=== PATIENT | female | born 1940 | race African-American/Black ===

== ENCOUNTER 2018-03-18 17:00 | Inpatient (IN) | payer MEDICARE, BC ==
[~2018-03-18] VITALS: Ht 167.6 cm; Wt 88.5 kg
[~2018-03-18 17:00] MED LIST: AMOX1TAB16 PO; LEVO88TA7 PO; POLY17PO3 PO; SENN-3 PO
[2018-03-18 17:30] VITALS: BP 137/62
[2018-03-18] MEDS ORDERED: SENNOSIDES/DOCUSATE SOD 8.6/50MG TABLET PO PRN (17:45)
[2018-03-18] MEDS ORDERED: MAGNESIUM/ALUMINUM HYDROXIDE/SIMETHICONE 30ML UDC PO PRN (17:45)
[2018-03-18] MEDS ORDERED: GUAIFENESIN 200MG/10ML SUGAR FREE UDC PO PRN (17:45)
[2018-03-18] MEDS ORDERED: ACETAMINOPHEN 650MG SUPP PR PRN (17:45)
[2018-03-18] MEDS ORDERED: ONDANSETRON 4MG ODT PO PRN (18:00)
[2018-03-18 20:00] VITALS: BP 100/64
[2018-03-18] MEDS: IPRATROPIUM/ALBUTEROL 0.5-3(2.5)MG/3ML NEB HHN SCH (21:09)
[2018-03-18] MEDS: MAGNESIUM CHLORIDE 64MG TABLET SR PO SCH (22:15)
[2018-03-19] MEDS: IPRATROPIUM/ALBUTEROL 0.5-3(2.5)MG/3ML NEB HHN SCH ×4 (01:26→20:24)
[2018-03-19] MEDS: LEVOTHYROXINE SODIUM 88MCG TABLET PO SCH (06:19)
[2018-03-19 08:00] VITALS: BP 155/80
[2018-03-19 08:33] LABS: HEMATOCRIT 34.8 % (36.0-48.0); HEMOGLOBIN 11.1 g/dL (12.0-16.0); MEAN CORPUSCULAR VOLUME 90.5 fL (81.0-99.0); PLATELET 228 x1000/uL (130-400); RED BLOOD CELL COUNT 3.84 mill/uL (4.2-5.4); RED CELL DISTRIBUTION WIDTH 15.3 % (11.6-14.6)
[2018-03-19 08:44] LABS: CHLORIDE 105 mEq/L (98-107)
[2018-03-19] MEDS: DOCUSATE SODIUM 250MG CAPSULE PO SCH ×2 (09:20→18:06)
[2018-03-19] MEDS: POLYETHYLENE GLYCOL 3350 (17GM) 1 DOSE PACK PO SCH (09:21)
[2018-03-19] MEDS: MAGNESIUM CHLORIDE 64MG TABLET SR PO SCH ×2 (09:24→18:06)
[2018-03-19 17:00] VITALS: BP_SYST 138; BP_SYST 139; BP_DIAS 50; BP_DIAS 62
[2018-03-19] MEDS: SODIUM CHLORIDE 0.9% 1,000 ML IV SCH (18:07)
[2018-03-19 18:53] LABS: CLARITY URINE CLEAR (CLEAR); COLOR URINE YELLOW (YELLOW); KETONES URINE NEGATIVE (NEGATIVE); LEUKOCYTE ESTERASE URINE TRACE (NEGATIVE); NITRITE URINE NEGATIVE (NEGATIVE); OCCULT BLOOD URINE NEGATIVE (NEGATIVE); PROTEIN URINE NEGATIVE (NEGATIVE); SPECIFIC GRAVITY URINE 1.018 (1.005-1.030); UROBILINOGEN URINE 0.2 E.U./dL (0.2-1.0)
[2018-03-19 20:00] VITALS: BP 100/52
[2018-03-19] MEDS: ENOXAPARIN 30MG/0.3ML SYR SUBCUT SCH (21:35)
[2018-03-20] MEDS: IPRATROPIUM/ALBUTEROL 0.5-3(2.5)MG/3ML NEB HHN SCH ×4 (02:26→21:32)
[2018-03-20] MEDS: LEVOTHYROXINE SODIUM 88MCG TABLET PO SCH (06:22)
[2018-03-20] MEDS: PANTOPRAZOLE 40MG DR TABLET PO SCH (06:22)
[2018-03-20] MEDS: SODIUM CHLORIDE 0.9% 1,000 ML IV SCH ×2 (06:24→18:42)
[2018-03-20 07:15] LABS: BASOPHILS % 1.1 % (0.0-2.0); EOSINOPHILS % 2.2 % (0.0-5.0); HEMATOCRIT. 32.3 % (36.0-48.0); HEMOGLOBIN. 10.4 g/dL (12.0-16.0); LYMPHOCYTES % 21.8 % (20.0-50.0); MEAN CORPUSCULAR HEMOGLOBIN 29.1 pg (28.0-32.0); MEAN CORPUSCULAR VOLUME 90.3 fL (81.0-99.0); MEAN PLATELET VOLUME 8.6 fl (7.4-10.4); MONOCYTES % 6.7 % (2.0-8.0); NEUTROPHILS % 68.2 % (40.0-76.0); PLATELET 186 x1000/uL (130-400); RED BLOOD CELL COUNT 3.58 mill/uL (4.2-5.4); RED CELL DISTRIBUTION WIDTH 15.3 % (11.6-14.6)
[2018-03-20 07:21] LABS: AMMONIA 27 uMol/L (<32)
[2018-03-20 07:30] LABS: CHLORIDE 107 mEq/L (98-107)
[2018-03-20 08:00] VITALS: BP 164/80
[2018-03-20] MEDS ORDERED: ENOXAPARIN 40MG/0.4ML SYR SUBCUT SCH (09:00)
[2018-03-20] MEDS: POLYETHYLENE GLYCOL 3350 (17GM) 1 DOSE PACK PO SCH (10:13)
[2018-03-20] MEDS: MAGNESIUM CHLORIDE 64MG TABLET SR PO SCH ×2 (10:13→17:24)
[2018-03-20] MEDS: DOCUSATE SODIUM 250MG CAPSULE PO SCH ×2 (10:13→17:24)
[2018-03-20] MEDS: ENOXAPARIN 30MG/0.3ML SYR SUBCUT SCH ×2 (10:13→21:54)
[2018-03-20] MEDS: NYSTATIN POWDER 15GM TOP SCH ×2 (15:04→21:55)
[2018-03-20] MEDS: LACTULOSE 20G/30ML UDC PO SCH ×3 (15:04→22:00)
[2018-03-20] MEDS ORDERED: BISACODYL 10MG SUPP PR PRN (18:30)
[2018-03-20 20:00] VITALS: BP 152/98
[2018-03-21] MEDS: IPRATROPIUM/ALBUTEROL 0.5-3(2.5)MG/3ML NEB HHN SCH ×4 (01:36→19:54)
[2018-03-21] MEDS: LEVOTHYROXINE SODIUM 88MCG TABLET PO SCH (06:26)
[2018-03-21] MEDS: PANTOPRAZOLE 40MG DR TABLET PO SCH (06:26)
[2018-03-21] MEDS: NYSTATIN POWDER 15GM TOP SCH ×3 (06:28→21:08)
[2018-03-21 07:23] LABS: BASOPHILS % 1.1 % (0.0-2.0); EOSINOPHILS % 2.3 % (0.0-5.0); HEMATOCRIT. 29.2 % (36.0-48.0); HEMOGLOBIN. 9.5 g/dL (12.0-16.0); LYMPHOCYTES % 18.8 % (20.0-50.0); MEAN CORPUSCULAR HEMOGLOBIN 29.2 pg (28.0-32.0); MEAN CORPUSCULAR VOLUME 89.8 fL (81.0-99.0); MEAN PLATELET VOLUME 8.4 fl (7.4-10.4); MONOCYTES % 7.6 % (2.0-8.0); NEUTROPHILS % 70.2 % (40.0-76.0); PLATELET 191 x1000/uL (130-400); RED BLOOD CELL COUNT 3.25 mill/uL (4.2-5.4)
[2018-03-21 07:37] LABS: PHOSPHORUS 2.3 mg/dL (2.5-4.9)
[2018-03-21 07:56] VITALS: BP 147/78
[2018-03-21 08:23] LABS: FOLIC ACID (FOLATE) SERUM 8.8 ng/mL (>5.38)
[2018-03-21] MEDS: SODIUM CHLORIDE 0.9% 1,000 ML IV SCH ×2 (10:26→22:05)
[2018-03-21] MEDS: DOCUSATE SODIUM 250MG CAPSULE PO SCH ×2 (10:27→16:44)
[2018-03-21] MEDS: ENOXAPARIN 30MG/0.3ML SYR SUBCUT SCH (10:27)
[2018-03-21] MEDS: POLYETHYLENE GLYCOL 3350 (17GM) 1 DOSE PACK PO SCH (10:27)
[2018-03-21] MEDS: MAGNESIUM CHLORIDE 64MG TABLET SR PO SCH ×2 (10:27→16:44)
[2018-03-21] MEDS: ACETAMINOPHEN 650MG/20.3ML UDC PO PRN (12:40)
[2018-03-21 19:57] LABS: AMMONIA 16 uMol/L (<32)
[2018-03-21 20:00] VITALS: BP 138/65
[2018-03-22] MEDS: IPRATROPIUM/ALBUTEROL 0.5-3(2.5)MG/3ML NEB HHN SCH ×4 (01:36→21:18)
[2018-03-22] MEDS: NYSTATIN POWDER 15GM TOP SCH ×3 (06:18→21:12)
[2018-03-22] MEDS: LEVOTHYROXINE SODIUM 88MCG TABLET PO SCH (06:18)
[2018-03-22] MEDS: PANTOPRAZOLE 40MG DR TABLET PO SCH (06:18)
[2018-03-22 07:30] LABS: BASOPHILS % 0.9 % (0.0-2.0); EOSINOPHILS % 3.7 % (0.0-5.0); HEMATOCRIT. 27.5 % (36.0-48.0); HEMOGLOBIN. 9.2 g/dL (12.0-16.0); LYMPHOCYTES % 24.8 % (20.0-50.0); MEAN CORPUSCULAR HEMOGLOBIN 29.8 pg (28.0-32.0); MEAN CORPUSCULAR VOLUME 89.2 fL (81.0-99.0); MEAN PLATELET VOLUME 8.4 fl (7.4-10.4); MONOCYTES % 8.2 % (2.0-8.0); NEUTROPHILS % 62.4 % (40.0-76.0); PLATELET 181 x1000/uL (130-400); RED BLOOD CELL COUNT 3.08 mill/uL (4.2-5.4); RED CELL DISTRIBUTION WIDTH 15.6 % (11.6-14.6)
[2018-03-22 07:47] LABS: CHLORIDE 110 mEq/L (98-107)
[2018-03-22 08:00] VITALS: BP 131/62
[2018-03-22 08:05] LABS: PHOSPHORUS 2.5 mg/dL (2.5-4.9)
[2018-03-22 08:07] LABS: T4 FREE 0.96 ng/dL (0.76-1.46)
[2018-03-22] MEDS ORDERED: MAGNESIUM 2 G PREMIX 50 ML IV SCH (09:30)
[2018-03-22] MEDS: DOCUSATE SODIUM 250MG CAPSULE PO SCH ×2 (09:51→17:42)
[2018-03-22] MEDS: POLYETHYLENE GLYCOL 3350 (17GM) 1 DOSE PACK PO SCH (09:51)
[2018-03-22] MEDS: ENOXAPARIN 40MG/0.4ML SYR SUBCUT SCH (09:53)
[2018-03-22] MEDS: MAGNESIUM CHLORIDE 64MG TABLET SR PO SCH ×2 (12:12→17:42)
[2018-03-22] MEDS: SODIUM CHLORIDE 0.9% 1,000 ML IV SCH (12:58)
[2018-03-22 17:33] LABS: AMMONIA 28 uMol/L (<32)
[2018-03-22 20:00] VITALS: BP 134/47
[2018-03-23] MEDS: IPRATROPIUM/ALBUTEROL 0.5-3(2.5)MG/3ML NEB HHN SCH ×4 (01:27→20:29)
[2018-03-23] MEDS: SODIUM CHLORIDE 0.9% 1,000 ML IV SCH ×3 (02:30→21:59)
[2018-03-23] MEDS: NYSTATIN POWDER 15GM TOP SCH ×3 (06:11→21:59)
[2018-03-23] MEDS: LEVOTHYROXINE SODIUM 88MCG TABLET PO SCH (06:11)
[2018-03-23] MEDS: PANTOPRAZOLE 40MG DR TABLET PO SCH (06:11)
[2018-03-23 08:00] VITALS: BP 139/67
[2018-03-23 08:29] LABS: BASOPHILS % 1.4 % (0.0-2.0); EOSINOPHILS % 3.9 % (0.0-5.0); HEMATOCRIT. 27.3 % (36.0-48.0); HEMOGLOBIN. 8.9 g/dL (12.0-16.0); LYMPHOCYTES % 25.7 % (20.0-50.0); MEAN CORPUSCULAR HEMOGLOBIN 29.5 pg (28.0-32.0); MEAN CORPUSCULAR VOLUME 90.4 fL (81.0-99.0); MEAN PLATELET VOLUME 8.4 fl (7.4-10.4); MONOCYTES % 8.7 % (2.0-8.0); NEUTROPHILS % 60.3 % (40.0-76.0); PLATELET 175 x1000/uL (130-400); RED BLOOD CELL COUNT 3.02 mill/uL (4.2-5.4); RED CELL DISTRIBUTION WIDTH 15.5 % (11.6-14.6)
[2018-03-23] MEDS: DOCUSATE SODIUM 250MG CAPSULE PO SCH ×2 (08:37→17:39)
[2018-03-23] MEDS: ENOXAPARIN 40MG/0.4ML SYR SUBCUT SCH (08:37)
[2018-03-23] MEDS: MAGNESIUM CHLORIDE 64MG TABLET SR PO SCH ×2 (08:38→17:39)
[2018-03-23] MEDS: POLYETHYLENE GLYCOL 3350 (17GM) 1 DOSE PACK PO SCH (08:38)
[2018-03-23 09:14] LABS: PHOSPHORUS 2.3 mg/dL (2.5-4.9)
[2018-03-23 09:39] VITALS: BP 127/62
[2018-03-23 20:00] VITALS: BP 144/60
[2018-03-24] MEDS: IPRATROPIUM/ALBUTEROL 0.5-3(2.5)MG/3ML NEB HHN SCH ×4 (02:08→20:38)
[2018-03-24] MEDS: NYSTATIN POWDER 15GM TOP SCH ×3 (05:41→22:17)
[2018-03-24] MEDS: LEVOTHYROXINE SODIUM 88MCG TABLET PO SCH (06:00)
[2018-03-24] MEDS: PANTOPRAZOLE 40MG DR TABLET PO SCH (06:00)
[2018-03-24 07:41] LABS: BASOPHILS % 1.2 % (0.0-2.0); EOSINOPHILS % 3.5 % (0.0-5.0); HEMATOCRIT. 29.3 % (36.0-48.0); HEMOGLOBIN. 9.5 g/dL (12.0-16.0); LYMPHOCYTES % 21.4 % (20.0-50.0); MEAN CORPUSCULAR HEMOGLOBIN 29.3 pg (28.0-32.0); MEAN CORPUSCULAR VOLUME 89.8 fL (81.0-99.0); MEAN PLATELET VOLUME 8.3 fl (7.4-10.4); MONOCYTES % 8.1 % (2.0-8.0); NEUTROPHILS % 65.8 % (40.0-76.0); PLATELET 179 x1000/uL (130-400); RED BLOOD CELL COUNT 3.26 mill/uL (4.2-5.4); RED CELL DISTRIBUTION WIDTH 15.4 % (11.6-14.6)
[2018-03-24 08:32] VITALS: BP 161/89
[2018-03-24 08:50] LABS: PHOSPHORUS 2.5 mg/dL (2.5-4.9)
[2018-03-24] MEDS: MAGNESIUM CHLORIDE 64MG TABLET SR PO SCH ×2 (08:53→17:54)
[2018-03-24] MEDS: CLONIDINE 0.1MG TABLET PO PRN (08:53)
[2018-03-24] MEDS: DOCUSATE SODIUM 250MG CAPSULE PO SCH ×2 (08:53→17:55)
[2018-03-24] MEDS: POLYETHYLENE GLYCOL 3350 (17GM) 1 DOSE PACK PO SCH (08:56)
[2018-03-24] MEDS: ENOXAPARIN 40MG/0.4ML SYR SUBCUT SCH (08:56)
[2018-03-24] MEDS: SODIUM CHLORIDE 0.9% 1,000 ML IV SCH (13:25)
[2018-03-24 19:59] VITALS: BP 140/50
[2018-03-25] MEDS: IPRATROPIUM/ALBUTEROL 0.5-3(2.5)MG/3ML NEB HHN SCH ×4 (01:18→19:42)
[2018-03-25] MEDS: PANTOPRAZOLE 40MG DR TABLET PO SCH (06:00)
[2018-03-25] MEDS: LEVOTHYROXINE SODIUM 88MCG TABLET PO SCH (06:00)
[2018-03-25] MEDS: SODIUM CHLORIDE 0.9% 1,000 ML IV SCH ×2 (06:00→20:38)
[2018-03-25] MEDS: NYSTATIN POWDER 15GM TOP SCH ×3 (06:03→22:00)
[2018-03-25 06:28] LABS: BASOPHILS % 1.2 % (0.0-2.0); HEMATOCRIT. 27.4 % (36.0-48.0); LYMPHOCYTES % 26.5 % (20.0-50.0); MEAN CORPUSCULAR HEMOGLOBIN 29.7 pg (28.0-32.0); MEAN CORPUSCULAR VOLUME 90.2 fL (81.0-99.0); MEAN PLATELET VOLUME 8.7 fl (7.4-10.4); NEUTROPHILS % 59.3 % (40.0-76.0); PLATELET 161 x1000/uL (130-400); RED BLOOD CELL COUNT 3.03 mill/uL (4.2-5.4); RED CELL DISTRIBUTION WIDTH 15.9 % (11.6-14.6)
[2018-03-25 07:08] LABS: PHOSPHORUS 2.4 mg/dL (2.5-4.9)
[2018-03-25 08:00] VITALS: BP 141/77
[2018-03-25] MEDS: POLYETHYLENE GLYCOL 3350 (17GM) 1 DOSE PACK PO SCH (08:23)
[2018-03-25] MEDS: ENOXAPARIN 40MG/0.4ML SYR SUBCUT SCH (08:24)
[2018-03-25] MEDS: DOCUSATE SODIUM 250MG CAPSULE PO SCH ×2 (08:24→17:57)
[2018-03-25] MEDS: MAGNESIUM CHLORIDE 64MG TABLET SR PO SCH ×2 (08:34→17:57)
[2018-03-25 17:06] LABS: 25-HYDROXY VITAMIN D3 26 ng/mL (.)
[2018-03-25] MEDS: POTASSIUM-SODIUM PHOSPHATE POWDER PACKET PO SCH (17:59)
[2018-03-25 20:00] VITALS: BP 120/71
[2018-03-26] MEDS: IPRATROPIUM/ALBUTEROL 0.5-3(2.5)MG/3ML NEB HHN SCH ×4 (02:51→19:51)
[2018-03-26 04:56] LABS: CLARITY URINE CLEAR (CLEAR); COLOR URINE YELLOW (YELLOW); KETONES URINE NEGATIVE (NEGATIVE); LEUKOCYTE ESTERASE URINE NEGATIVE (NEGATIVE); NITRITE URINE NEGATIVE (NEGATIVE); OCCULT BLOOD URINE NEGATIVE (NEGATIVE); PROTEIN URINE NEGATIVE (NEGATIVE); SPECIFIC GRAVITY URINE 1.011 (1.005-1.030); UROBILINOGEN URINE 0.2 E.U./dL (0.2-1.0)
[2018-03-26] MEDS: LEVOTHYROXINE SODIUM 88MCG TABLET PO SCH (06:05)
[2018-03-26] MEDS: NYSTATIN POWDER 15GM TOP SCH ×3 (06:05→21:11)
[2018-03-26 07:20] LABS: EOSINOPHILS % 3.7 % (0.0-5.0); HEMATOCRIT. 27.8 % (36.0-48.0); HEMOGLOBIN. 9.1 g/dL (12.0-16.0); LYMPHOCYTES % 24.4 % (20.0-50.0); MEAN CORPUSCULAR HEMOGLOBIN 29.3 pg (28.0-32.0); MEAN CORPUSCULAR VOLUME 89.8 fL (81.0-99.0); MEAN PLATELET VOLUME 8.7 fl (7.4-10.4); MONOCYTES % 7.7 % (2.0-8.0); NEUTROPHILS % 63.2 % (40.0-76.0); PLATELET 162 x1000/uL (130-400); RED BLOOD CELL COUNT 3.09 mill/uL (4.2-5.4); RED CELL DISTRIBUTION WIDTH 16.3 % (11.6-14.6)
[2018-03-26 08:08] VITALS: BP 148/76
[2018-03-26] MEDS: ENOXAPARIN 40MG/0.4ML SYR SUBCUT SCH (08:46)
[2018-03-26] MEDS: DOCUSATE SODIUM 250MG CAPSULE PO SCH ×2 (08:46→16:48)
[2018-03-26] MEDS: FAMOTIDINE 20MG TABLET PO SCH (08:46)
[2018-03-26] MEDS: POLYETHYLENE GLYCOL 3350 (17GM) 1 DOSE PACK PO SCH (08:47)
[2018-03-26] MEDS: POTASSIUM-SODIUM PHOSPHATE POWDER PACKET PO SCH ×2 (08:47→16:48)
[2018-03-26] MEDS: SODIUM CHLORIDE 0.9% 1,000 ML IV SCH ×2 (09:55→22:33)
[2018-03-26] MEDS: MAGNESIUM CHLORIDE 64MG TABLET SR PO SCH ×2 (09:56→16:49)
[2018-03-26] MEDS: CLONIDINE 0.1MG TABLET PO PRN (17:57)
[2018-03-26 20:00] VITALS: BP 137/78
[2018-03-27] MEDS: IPRATROPIUM/ALBUTEROL 0.5-3(2.5)MG/3ML NEB HHN SCH ×4 (01:40→21:14)
[2018-03-27] MEDS: NYSTATIN POWDER 15GM TOP SCH ×3 (06:11→22:45)
[2018-03-27] MEDS: LEVOTHYROXINE SODIUM 88MCG TABLET PO SCH (06:11)
[2018-03-27 07:03] LABS: CHLORIDE 113 mEq/L (98-107)
[2018-03-27 07:04] LABS: BASOPHILS % 1.2 % (0.0-2.0); EOSINOPHILS % 4.5 % (0.0-5.0); HEMATOCRIT. 26.8 % (36.0-48.0); HEMOGLOBIN. 8.8 g/dL (12.0-16.0); MEAN CORPUSCULAR HEMOGLOBIN 29.3 pg (28.0-32.0); MEAN CORPUSCULAR VOLUME 89.7 fL (81.0-99.0); MEAN PLATELET VOLUME 8.8 fl (7.4-10.4); MONOCYTES % 8.8 % (2.0-8.0); NEUTROPHILS % 61.5 % (40.0-76.0); PLATELET 144 x1000/uL (130-400); RED BLOOD CELL COUNT 2.99 mill/uL (4.2-5.4); RED CELL DISTRIBUTION WIDTH 15.9 % (11.6-14.6)
[2018-03-27 07:44] LABS: PHOSPHORUS 2.8 mg/dL (2.5-4.9)
[2018-03-27 08:00] VITALS: BP 164/64
[2018-03-27] MEDS: POTASSIUM-SODIUM PHOSPHATE POWDER PACKET PO SCH ×2 (08:51→18:12)
[2018-03-27] MEDS: DOCUSATE SODIUM 250MG CAPSULE PO SCH ×2 (08:51→18:13)
[2018-03-27] MEDS: FAMOTIDINE 20MG TABLET PO SCH (08:51)
[2018-03-27] MEDS: POLYETHYLENE GLYCOL 3350 (17GM) 1 DOSE PACK PO SCH (08:51)
[2018-03-27] MEDS: ENOXAPARIN 40MG/0.4ML SYR SUBCUT SCH (08:51)
[2018-03-27] MEDS: MAGNESIUM CHLORIDE 64MG TABLET SR PO SCH (10:32)
[2018-03-27] MEDS: SODIUM CHLORIDE 0.9% 1,000 ML IV SCH (11:19)
[2018-03-27] MEDS: ACETAMINOPHEN 650MG/20.3ML UDC PO PRN (11:21)
[2018-03-27 20:00] VITALS: BP 107/68
[2018-03-27] MEDS: MAGNESIUM OXIDE 400MG TABLET PO SCH (22:40)
[2018-03-28] MEDS: IPRATROPIUM/ALBUTEROL 0.5-3(2.5)MG/3ML NEB HHN SCH ×4 (01:57→20:00)
[2018-03-28] MEDS: SODIUM CHLORIDE 0.9% 1,000 ML IV SCH (06:31)
[2018-03-28] MEDS: NYSTATIN POWDER 15GM TOP SCH ×3 (06:31→21:20)
[2018-03-28] MEDS: LEVOTHYROXINE SODIUM 88MCG TABLET PO SCH (06:31)
[2018-03-28 07:01] LABS: BASOPHILS % 1.3 % (0.0-2.0); EOSINOPHILS % 3.9 % (0.0-5.0); HEMATOCRIT. 27.4 % (36.0-48.0); LYMPHOCYTES % 28.3 % (20.0-50.0); MEAN CORPUSCULAR HEMOGLOBIN 29.3 pg (28.0-32.0); MEAN CORPUSCULAR VOLUME 89.4 fL (81.0-99.0); MEAN PLATELET VOLUME 8.8 fl (7.4-10.4); MONOCYTES % 9.9 % (2.0-8.0); NEUTROPHILS % 56.6 % (40.0-76.0); PLATELET 160 x1000/uL (130-400); RED BLOOD CELL COUNT 3.07 mill/uL (4.2-5.4); RED CELL DISTRIBUTION WIDTH 16.6 % (11.6-14.6)
[2018-03-28 08:00] VITALS: BP 109/51
[2018-03-28] MEDS: ENOXAPARIN 40MG/0.4ML SYR SUBCUT SCH (08:42)
[2018-03-28] MEDS: POLYETHYLENE GLYCOL 3350 (17GM) 1 DOSE PACK PO SCH (08:42)
[2018-03-28] MEDS: MAGNESIUM OXIDE 400MG TABLET PO SCH ×2 (08:42→21:20)
[2018-03-28] MEDS: DOCUSATE SODIUM 250MG CAPSULE PO SCH ×2 (08:42→17:53)
[2018-03-28] MEDS: FAMOTIDINE 20MG TABLET PO SCH (08:42)
[2018-03-28] MEDS: POTASSIUM-SODIUM PHOSPHATE POWDER PACKET PO SCH ×2 (08:42→17:53)
[2018-03-28 09:00] LABS: PHOSPHORUS 2.9 mg/dL (2.5-4.9)
[2018-03-28] MEDS: ACETAMINOPHEN 650MG/20.3ML UDC PO PRN (11:08)
[2018-03-28] MEDS ORDERED: ERGOCALCIFEROL 50000UNITS CAPSULE PO SCH (14:45)
[2018-03-28] MEDS ORDERED: FUROSEMIDE 20MG/2ML VIAL IVP SCH (15:00)
[2018-03-28] MEDS: ZINC SULFATE 220 MG ( 50 ) CAPSULE PO SCH (15:25)
[2018-03-28 20:00] VITALS: BP 149/81
[2018-03-29] MEDS: IPRATROPIUM/ALBUTEROL 0.5-3(2.5)MG/3ML NEB HHN SCH ×4 (01:40→21:23)
[2018-03-29] MEDS: NYSTATIN POWDER 15GM TOP SCH ×3 (06:14→21:39)
[2018-03-29] MEDS: LEVOTHYROXINE SODIUM 88MCG TABLET PO SCH (06:15)
[2018-03-29 06:30] LABS: BASOPHILS % 1.1 % (0.0-2.0); EOSINOPHILS % 5.1 % (0.0-5.0); HEMATOCRIT. 28.4 % (36.0-48.0); HEMOGLOBIN. 9.1 g/dL (12.0-16.0); MEAN CORPUSCULAR HEMOGLOBIN 29.1 pg (28.0-32.0); MEAN CORPUSCULAR VOLUME 90.3 fL (81.0-99.0); MEAN PLATELET VOLUME 8.9 fl (7.4-10.4); MONOCYTES % 9.8 % (2.0-8.0); PLATELET 151 x1000/uL (130-400); RED BLOOD CELL COUNT 3.14 mill/uL (4.2-5.4); RED CELL DISTRIBUTION WIDTH 16.5 % (11.6-14.6)
[2018-03-29 07:28] LABS: PHOSPHORUS 3.2 mg/dL (2.5-4.9)
[2018-03-29 08:00] VITALS: BP 150/59
[2018-03-29] MEDS ORDERED: SODIUM POLYSTYRENE SULFONATE 15 G/60 ML BOT PO SCH (08:45)
[2018-03-29] MEDS: ZINC SULFATE 220 MG ( 50 ) CAPSULE PO SCH (09:08)
[2018-03-29] MEDS: MAGNESIUM OXIDE 400MG TABLET PO SCH ×2 (09:08→21:38)
[2018-03-29] MEDS: POLYETHYLENE GLYCOL 3350 (17GM) 1 DOSE PACK PO SCH (09:08)
[2018-03-29] MEDS: FAMOTIDINE 20MG TABLET PO SCH (09:08)
[2018-03-29] MEDS: POTASSIUM-SODIUM PHOSPHATE POWDER PACKET PO SCH ×2 (09:08→17:24)
[2018-03-29] MEDS: DOCUSATE SODIUM 250MG CAPSULE PO SCH ×2 (09:08→17:24)
[2018-03-29] MEDS: ENOXAPARIN 40MG/0.4ML SYR SUBCUT SCH (09:09)
[2018-03-29 20:00] VITALS: BP 139/70
[2018-03-30] MEDS: IPRATROPIUM/ALBUTEROL 0.5-3(2.5)MG/3ML NEB HHN SCH ×3 (01:27→13:00)
[2018-03-30] MEDS: NYSTATIN POWDER 15GM TOP SCH ×2 (05:57→14:00)
[2018-03-30] MEDS: LEVOTHYROXINE SODIUM 88MCG TABLET PO SCH (06:00)
[2018-03-30 08:00] VITALS: BP 119/50
[2018-03-30] MEDS: MAGNESIUM OXIDE 400MG TABLET PO SCH (08:41)
[2018-03-30] MEDS: DOCUSATE SODIUM 250MG CAPSULE PO SCH (08:41)
[2018-03-30] MEDS: FAMOTIDINE 20MG TABLET PO SCH (08:41)
[2018-03-30] MEDS: POLYETHYLENE GLYCOL 3350 (17GM) 1 DOSE PACK PO SCH (08:41)
[2018-03-30] MEDS: ENOXAPARIN 40MG/0.4ML SYR SUBCUT SCH (08:41)
[2018-03-30] MEDS: POTASSIUM-SODIUM PHOSPHATE POWDER PACKET PO SCH (08:41)
[2018-03-30] MEDS: ZINC SULFATE 220 MG ( 50 ) CAPSULE PO SCH (08:41)
[2018-03-30] MEDS ORDERED: LEVO88TA7 PO (12:18)
[2018-03-30] MEDS ORDERED: FAMO20TA8 PO (12:18)
[2018-03-30] MEDS ORDERED: POLY17PO3 PO (12:18)
[2018-03-30] MEDS ORDERED: DOCU250C14 PO (12:18)
[2018-03-30] MEDS ORDERED: OR220 PO (12:18)
[2018-03-30] MEDS ORDERED: SENN-3 PO (12:18)
[2018-03-30 12:38] VITALS: BP 119/50
== END 2018-03-30 18:00 | disposition home health service (06) | DRG 91 ==
PROVIDERS: ADMIT Physical Medicine & Rehabilitation Spinal Cord Injury Medicine; ATTEND Internal Medicine
DX: G92 Toxic encephalopathy (principal); E43 Unspecified severe protein-calorie malnutrition; N17.9 Acute kidney failure, unspecified; M62.82 Rhabdomyolysis; N39.0 Urinary tract infection, site not specified; E72.20 Disorder of urea cycle metabolism, unspecified; A86 Unspecified viral encephalitis; E03.9 Hypothyroidism, unspecified; D64.9 Anemia, unspecified; N18.2 Chronic kidney disease, stage 2 (mild); I12.9 Hypertensive chronic kidney disease with stage 1 through stage 4 chronic kidney disease, or unspecified chronic kidney disease; R26.9 Unspecified abnormalities of gait and mobility; R53.81 Other malaise; M79.609 Pain in unspecified limb; K59.00 Constipation, unspecified; K80.20 Calculus of gallbladder without cholecystitis without obstruction; E83.42 Hypomagnesemia; E83.39 Other disorders of phosphorus metabolism; F32.9 Major depressive disorder, single episode, unspecified; F41.9 Anxiety disorder, unspecified; B96.4 Proteus (mirabilis) (morganii) as the cause of diseases classified elsewhere; F09 Unspecified mental disorder due to known physiological condition; Z88.6 Allergy status to analgesic agent; Z82.49 Family history of ischemic heart disease and other diseases of the circulatory system; Z68.31 Body mass index [BMI] 31.0-31.9, adult
CPT/HCPCS: 36415; 80048; 80053; 80061; 81003; 82140; 82270; 82306; 82607; 82728; 82746; 83540; 83550; 83735; 84100; 84134; 84439; 84443; 84481; 84630; 85025; 85027; 85044; 87086; 92523; 92610; 93970; 94640; 97110; 97116; 97163; 97166; 97530; 97535; A6261; J1650; J1940; J3475; J7030; J7620; A5200

== ENCOUNTER 2018-07-19 09:50 | Inpatient (IN) | payer MEDICARE, BC ==
[~2018-07-19] VITALS: Ht 162.6 cm; Wt 87.1 kg
[~2018-07-19 09:50] MED LIST changes: -AMOX1TAB16 PO; +DOCU250C14 PO; +FAMO20TA8 PO; +OR220 PO
[2018-07-19] MEDS ORDERED: SODIUM CHLORIDE 0.9% 1,000 ML IV ONE (11:45)
[2018-07-19 12:03] LABS: BASOPHILS % 0.6 % (0.0-2.0); EOSINOPHILS % 1.7 % (0.0-5.0); HEMOGLOBIN. 11.3 g/dL (12.0-16.0); LYMPHOCYTES % 32.7 % (20.0-50.0); MEAN CORPUSCULAR HEMOGLOBIN 29.2 pg (28.0-32.0); MEAN CORPUSCULAR VOLUME 90.5 fL (81.0-99.0); MEAN PLATELET VOLUME 9.7 fl (7.4-10.4); MONOCYTES % 5.7 % (2.0-8.0); NEUTROPHILS % 59.3 % (40.0-76.0); PLATELET 115 x1000/uL (130-400); RED BLOOD CELL COUNT 3.87 mill/uL (4.2-5.4); RED CELL DISTRIBUTION WIDTH 15.9 % (11.6-14.6)
[2018-07-19 12:04] LABS: BG BASE EXCESS -6.2 mmol/L (-2.0-2.0); BG CARBOXYHEMOGLOBIN 0.3 % (0.5-1.5); BG DEOXYHEMOGLOBIN 1.5 % (0.0-5.0); BG FRACTION INSPIRED OXYGEN 24; BG HCO3 ACT 20.3 mmol/L (22.0-26.0); BG METHEMOGLOBIN 0.1 % (0.0-1.5); BG OXYGEN SATURATION 98.5 % (92.0-98.5); BG OXYHEMOGLOBIN 98.1 % (94.0-97.0); BG PCO2 44.2 mmHg (35.0-45.0); BG PO2 153.1 mmHg (75.0-100.0); BG SAMPLE SITE RIGHT RADIAL; BG TOTAL HEMOGLOBIN 11.3 g/dL (12.0-18.0); BG VENT MODE NASAL CANNULA
[2018-07-19 12:06] LABS: CHLORIDE 113 mEq/L (98-107)
[2018-07-19 12:14] LABS: ETHANOL BLOOD < 10 mg/dL
[2018-07-19 12:34] LABS: PROTHROMBIN TIME 10.2 sec (9.1-11.1)
[2018-07-19] MEDS ORDERED: PIPERACILLIN/TAZOBACTAM 3.375GM/50ML PREMIX IV STA (12:50)
[2018-07-19] MEDS ORDERED: VANCOMYCIN 1 G PREMIX 200 ML IV STA (12:50)
[2018-07-19] MEDS ORDERED: PIPERACILLIN/TAZ 3.375G PREMIX 50 ML IV ONE (13:00)
[2018-07-19] MEDS ORDERED: SODIUM CHLORIDE 0.9% 1000ML BAG (SEPSIS BOLUS) IV ONE (13:00)
[2018-07-19] MEDS ORDERED: HYDROCODONE/ACETAMINOPHEN 5/325MG TABLET PO PRN (17:30)
[2018-07-19] MEDS ORDERED: DOCUSATE SODIUM 100MG CAPSULE PO PRN (17:30)
[2018-07-19] MEDS ORDERED: IPRATROPIUM/ALBUTEROL 0.5-3(2.5)MG/3ML NEB INH PRN (17:30)
[2018-07-19] MEDS ORDERED: ACETAMINOPHEN 325MG TABLET PO PRN (17:30)
[2018-07-19] MEDS ORDERED: MAGNESIUM/ALUMINUM HYDROXIDE/SIMETHICONE 30ML UDC PO PRN (17:30)
[2018-07-19] MEDS ORDERED: ONDANSETRON HCL 4MG/2ML INJ IV PRN (17:30)
[2018-07-19] MEDS ORDERED: GUAIFENESIN 200MG/10ML SUGAR FREE UDC PO PRN (17:30)
[2018-07-19 19:30] VITALS: BP 118/64
[2018-07-19] MEDS ORDERED: MORPHINE SULFATE 4 MG/ML CPJ (NOT FOR IM USE) IV PRN (19:30)
[2018-07-19 20:00] VITALS: BP 118/64
[2018-07-19] MEDS ORDERED: NA PHOS,M-B/NA PHOS,DI-BA ENEMA 118ML PR PRN (21:00)
[2018-07-19] MEDS: ENOXAPARIN 40MG/0.4ML SYR SUBCUT SCH (21:49)
[2018-07-19] MEDS: SODIUM CHLORIDE 0.45% 1,000 ML IV SCH (21:57)
[2018-07-19 22:00] VITALS: BP 95/48
[2018-07-19] MEDS ORDERED: HALO2TAB MT (23:53)
[2018-07-19] MEDS ORDERED: FURO20TA4 MT (23:53)
[2018-07-19] MEDS ORDERED: LEVO75TA7 MT (23:53)
[2018-07-19] MEDS ORDERED: DOCU250C14 MT (23:53)
[2018-07-20] VITALS (11 sets, daily range): BP systolic 93–172; BP diastolic 45–80
[2018-07-20] MEDS: DIPHENHYDRAMINE 50MG/ML VIAL IV PRN ×2 (05:08→20:53)
[2018-07-20 07:11] LABS: BASOPHILS % 0.6 % (0.0-2.0); EOSINOPHILS % 1.6 % (0.0-5.0); HEMATOCRIT. 29.1 % (36.0-48.0); HEMOGLOBIN. 9.6 g/dL (12.0-16.0); LYMPHOCYTES % 21.5 % (20.0-50.0); MEAN CORPUSCULAR HEMOGLOBIN 30.1 pg (28.0-32.0); MEAN CORPUSCULAR VOLUME 90.8 fL (81.0-99.0); MEAN PLATELET VOLUME 10.5 fl (7.4-10.4); MONOCYTES % 7.4 % (2.0-8.0); NEUTROPHILS % 68.9 % (40.0-76.0); PLATELET 123 x1000/uL (130-400); RED BLOOD CELL COUNT 3.21 mill/uL (4.2-5.4); RED CELL DISTRIBUTION WIDTH 15.5 % (11.6-14.6)
[2018-07-20] MEDS: SODIUM CHLORIDE 0.45% 1,000 ML IV SCH ×2 (07:46→22:48)
[2018-07-20 08:58] LABS: CHLORIDE 113 mEq/L (98-107)
[2018-07-20 09:11] LABS: LDL CHOLESTEROL 119 mg/dL (5-100)
[2018-07-20 09:13] LABS: T4 FREE 0.36 ng/dL (0.76-1.46)
[2018-07-20 09:15] LABS: HDL CHOLESTEROL 63 mg/dL (40-59)
[2018-07-20] MEDS ORDERED: LEVOTHYROXINE SODIUM 75MCG TABLET PO SCH (09:30)
[2018-07-20] MEDS ORDERED: FUROSEMIDE 20MG TABLET PO SCH (09:45)
[2018-07-20] MEDS: HALOPERIDOL 2MG TABLET PO SCH ×2 (10:00→17:00)
[2018-07-20] MEDS: LORAZEPAM 2MG/ML CPJ IV PRN ×2 (10:35→20:53)
[2018-07-20] MEDS: DOCUSATE SODIUM 250MG CAPSULE PO SCH (10:41)
[2018-07-20] MEDS ORDERED: THROAT LOZENGES-BENZOCAINE/MENTH/CETYLPYRD CL LOZENGES MM PRN (14:15)
[2018-07-20] MEDS: CEFTRIAXONE 1 G PREMIX 50 ML IV SCH (16:36)
[2018-07-20 16:58] LABS: CLARITY URINE CLEAR (CLEAR); COLOR URINE YELLOW (YELLOW); KETONES URINE NEGATIVE (NEGATIVE); LEUKOCYTE ESTERASE URINE NEGATIVE (NEGATIVE); NITRITE URINE NEGATIVE (NEGATIVE); OCCULT BLOOD URINE NEGATIVE (NEGATIVE); PROTEIN URINE NEGATIVE (NEGATIVE); SPECIFIC GRAVITY URINE 1.014 (1.005-1.030); UROBILINOGEN URINE 0.2 E.U./dL (0.2-1.0)
[2018-07-20 17:12] LABS: *AMPHETAMINES SCREEN URINE NEGATIVE (NEGATIVE); CANNABINOID URINE SCREEN NEGATIVE (NEGATIVE); PHENCYCLIDINE URINE SCREEN NEGATIVE (NEGATIVE)
[2018-07-20 17:13] LABS: *BARBITURATES SCREEN URINE NEGATIVE (NEGATIVE); *BENZODIAZEPINES SCREEN URINE NEGATIVE (NEGATIVE); *COCAINE SCREEN URINE NEGATIVE (NEGATIVE); METHADONE URINE SCREEN NEGATIVE (NEGATIVE); OPIATES URINE SCREEN NEGATIVE (NEGATIVE)
[2018-07-20] MEDS: ENOXAPARIN 40MG/0.4ML SYR SUBCUT SCH (20:53)
[2018-07-20] MEDS: FLUTICASONE PROPIONATE 50MCG/SPRAY BOTTLE BOTHNSTRLS SCH (20:54)
[2018-07-21] VITALS (14 sets, daily range): BP systolic 125–174; BP diastolic 50–95
[2018-07-21] MEDS: LORAZEPAM 2MG/ML CPJ IV PRN (04:37)
[2018-07-21] MEDS: DIPHENHYDRAMINE 50MG/ML VIAL IV PRN ×2 (04:38→20:37)
[2018-07-21] MEDS: LEVOTHYROXINE SODIUM 100MCG TABLET PO SCH (07:30)
[2018-07-21] MEDS: FLUTICASONE PROPIONATE 50MCG/SPRAY BOTTLE BOTHNSTRLS SCH ×2 (09:00→20:37)
[2018-07-21] MEDS: HALOPERIDOL 2MG TABLET PO SCH ×2 (09:00→16:43)
[2018-07-21] MEDS: SODIUM CHLORIDE 0.45% 1,000 ML IV SCH (10:50)
[2018-07-21 11:47] LABS: BASOPHILS % 1.4 % (0.0-2.0); EOSINOPHILS % 4.5 % (0.0-5.0); HEMATOCRIT. 31.8 % (36.0-48.0); HEMOGLOBIN. 10.4 g/dL (12.0-16.0); LYMPHOCYTES % 44.8 % (20.0-50.0); MEAN CORPUSCULAR HEMOGLOBIN 29.8 pg (28.0-32.0); MEAN CORPUSCULAR VOLUME 90.7 fL (81.0-99.0); MEAN PLATELET VOLUME 10.1 fl (7.4-10.4); MONOCYTES % 9.8 % (2.0-8.0); NEUTROPHILS % 39.5 % (40.0-76.0); PLATELET 113 x1000/uL (130-400); RED BLOOD CELL COUNT 3.51 mill/uL (4.2-5.4); RED CELL DISTRIBUTION WIDTH 15.8 % (11.6-14.6)
[2018-07-21] MEDS: CEFTRIAXONE 1 G PREMIX 50 ML IV SCH (16:43)
[2018-07-21] MEDS: ENOXAPARIN 40MG/0.4ML SYR SUBCUT SCH (20:14)
[2018-07-21] MEDS: CLONIDINE 0.1MG TABLET PO PRN (23:28)
[2018-07-22] VITALS (11 sets, daily range): BP systolic 90–196; BP diastolic 54–156
[2018-07-22] MEDS: SODIUM CHLORIDE 0.45% 1,000 ML IV SCH ×3 (03:21→21:05)
[2018-07-22 07:09] LABS: BASOPHILS % 0.9 % (0.0-2.0); EOSINOPHILS % 3.1 % (0.0-5.0); HEMATOCRIT. 32.1 % (36.0-48.0); HEMOGLOBIN. 10.7 g/dL (12.0-16.0); LYMPHOCYTES % 34.4 % (20.0-50.0); MEAN CORPUSCULAR VOLUME 90.1 fL (81.0-99.0); MEAN PLATELET VOLUME 9.6 fl (7.4-10.4); MONOCYTES % 7.1 % (2.0-8.0); NEUTROPHILS % 54.5 % (40.0-76.0); PLATELET 133 x1000/uL (130-400); RED BLOOD CELL COUNT 3.56 mill/uL (4.2-5.4); RED CELL DISTRIBUTION WIDTH 15.4 % (11.6-14.6)
[2018-07-22 07:45] LABS: PHOSPHORUS 2.8 mg/dL (2.5-4.9)
[2018-07-22] MEDS: LEVOTHYROXINE SODIUM 100MCG TABLET PO SCH (08:01)
[2018-07-22] MEDS: DOCUSATE SODIUM 250MG CAPSULE PO SCH (08:01)
[2018-07-22] MEDS: HALOPERIDOL 2MG TABLET PO SCH ×2 (08:01→16:49)
[2018-07-22] MEDS: FLUTICASONE PROPIONATE 50MCG/SPRAY BOTTLE BOTHNSTRLS SCH ×2 (08:02→08:05)
[2018-07-22] MEDS ORDERED: NIFEDIPINE XL 60MG TAB PO SCH (12:30)
[2018-07-22] MEDS: NIFEDIPINE XL 60MG TAB PO SCH (13:09)
[2018-07-22] MEDS: CLONIDINE 0.1MG TABLET PO PRN (14:37)
[2018-07-22] MEDS: CEFTRIAXONE 1 G PREMIX 50 ML IV SCH (16:23)
[2018-07-23] VITALS (9 sets, daily range): BP systolic 90–164; BP diastolic 48–93
[2018-07-23] MEDS: FLUTICASONE PROPIONATE 50MCG/SPRAY BOTTLE BOTHNSTRLS SCH ×2 (02:07→08:41)
[2018-07-23] MEDS: ENOXAPARIN 40MG/0.4ML SYR SUBCUT SCH ×2 (02:13→22:12)
[2018-07-23] MEDS: DIPHENHYDRAMINE 50MG/ML VIAL IV PRN ×2 (02:16→22:13)
[2018-07-23] MEDS: LEVOTHYROXINE SODIUM 100MCG TABLET PO SCH (06:39)
[2018-07-23 07:43] LABS: BASOPHILS % 0.5 % (0.0-2.0); EOSINOPHILS % 2.4 % (0.0-5.0); HEMATOCRIT. 34.7 % (36.0-48.0); HEMOGLOBIN. 11.5 g/dL (12.0-16.0); LYMPHOCYTES % 21.4 % (20.0-50.0); MEAN CORPUSCULAR HEMOGLOBIN 29.8 pg (28.0-32.0); MEAN CORPUSCULAR VOLUME 90.2 fL (81.0-99.0); MEAN PLATELET VOLUME 9.2 fl (7.4-10.4); NEUTROPHILS % 69.7 % (40.0-76.0); PLATELET 121 x1000/uL (130-400); RED BLOOD CELL COUNT 3.84 mill/uL (4.2-5.4); RED CELL DISTRIBUTION WIDTH 15.3 % (11.6-14.6)
[2018-07-23] MEDS: NIFEDIPINE XL 60MG TAB PO SCH (08:41)
[2018-07-23] MEDS: HALOPERIDOL 2MG TABLET PO SCH ×2 (08:41→17:00)
[2018-07-23] MEDS: CEFTRIAXONE 1 G PREMIX 50 ML IV SCH (16:20)
[2018-07-24] VITALS (13 sets, daily range): BP systolic 90–176; BP diastolic 47–93
[2018-07-24 07:09] LABS: BASOPHILS % 0.7 % (0.0-2.0); EOSINOPHILS % 2.1 % (0.0-5.0); HEMATOCRIT. 33.4 % (36.0-48.0); HEMOGLOBIN. 10.9 g/dL (12.0-16.0); LYMPHOCYTES % 25.1 % (20.0-50.0); MEAN CORPUSCULAR HEMOGLOBIN 29.5 pg (28.0-32.0); MEAN CORPUSCULAR VOLUME 90.5 fL (81.0-99.0); MEAN PLATELET VOLUME 9.5 fl (7.4-10.4); MONOCYTES % 8.8 % (2.0-8.0); NEUTROPHILS % 63.3 % (40.0-76.0); PLATELET 129 x1000/uL (130-400); RED BLOOD CELL COUNT 3.69 mill/uL (4.2-5.4); RED CELL DISTRIBUTION WIDTH 15.3 % (11.6-14.6)
[2018-07-24] MEDS: LEVOTHYROXINE SODIUM 100MCG TABLET PO SCH (09:14)
[2018-07-24] MEDS: NIFEDIPINE XL 60MG TAB PO SCH (09:14)
[2018-07-24] MEDS: HALOPERIDOL 2MG TABLET PO SCH ×2 (09:14→16:53)
[2018-07-24] MEDS: DOCUSATE SODIUM 250MG CAPSULE PO SCH (09:57)
[2018-07-24] MEDS: NITROFURANTOIN 100MG M/M CAPSULE PO SCH (20:36)
[2018-07-24] MEDS: ENOXAPARIN 40MG/0.4ML SYR SUBCUT SCH (20:36)
[2018-07-25] VITALS (9 sets, daily range): BP systolic 129–160; BP diastolic 63–92
[2018-07-25] MEDS: NIFEDIPINE XL 60MG TAB PO SCH (09:00)
[2018-07-25] MEDS: NITROFURANTOIN 100MG M/M CAPSULE PO SCH (09:21)
[2018-07-25] MEDS: HALOPERIDOL 2MG TABLET PO SCH (09:22)
[2018-07-25] MEDS: LEVOTHYROXINE SODIUM 100MCG TABLET PO SCH (09:22)
== END 2018-07-25 15:00 | DRG 871 ==
LOC: ER 09:50 → 5EST 14:21 → EDBEDREQ 14:28 → ENRESERV 17:16
PROVIDERS: ADMIT Internal Medicine; ATTEND Internal Medicine
DX: A41.81 Sepsis due to Enterococcus (principal); N17.0 Acute kidney failure with tubular necrosis; G93.41 Metabolic encephalopathy; J96.00 Acute respiratory failure, unspecified whether with hypoxia or hypercapnia; D61.818 Other pancytopenia; E87.2 Acidosis; E87.0 Hyperosmolality and hypernatremia; I13.0 Hypertensive heart and chronic kidney disease with heart failure and stage 1 through stage 4 chronic kidney disease, or unspecified chronic kidney disease; I31.3 Pericardial effusion (noninflammatory); N39.0 Urinary tract infection, site not specified; M62.82 Rhabdomyolysis; E46 Unspecified protein-calorie malnutrition; E03.9 Hypothyroidism, unspecified; E83.42 Hypomagnesemia; E86.0 Dehydration; F03.90 Unspecified dementia, unspecified severity, without behavioral disturbance, psychotic disturbance, mood disturbance, and anxiety; F20.9 Schizophrenia, unspecified; I25.10 Atherosclerotic heart disease of native coronary artery without angina pectoris; I27.20 Pulmonary hypertension, unspecified; I50.9 Heart failure, unspecified; N18.9 Chronic kidney disease, unspecified; F32.9 Major depressive disorder, single episode, unspecified; F41.9 Anxiety disorder, unspecified; T68.XXXA Hypothermia, initial encounter; D63.8 Anemia in other chronic diseases classified elsewhere; Z86.19 Personal history of other infectious and parasitic diseases; Z87.440 Personal history of urinary (tract) infections; Z88.8 Allergy status to other drugs, medicaments and biological substances; Z68.33 Body mass index [BMI] 33.0-33.9, adult
CPT/HCPCS: 36415; 36600; 71045; 76770; 80048; 80061; 80305; 82375; 82550; 82805; 82962; 83605; 83735; 83880; 84100; 84145; 84439; 84443; 84484; 86850; 86900; 87077; 87186; 87804; 93005; 93306; 96361; 96365; 96375; 97162; 97530; 99291; A6261; G0482; J0696; J1200; J1650; J2060; J2270; J2543; J3370; J7030; J7040; J7070

== ENCOUNTER 2018-12-04 14:08 | Inpatient (IN) | payer BC, MEDICARE ==
[2018-12-04] VITALS (7 sets, daily range): BP systolic 116–150; BP diastolic 17–102
[~2018-12-04] VITALS: Ht 165.1 cm; Wt 93.0 kg
[~2018-12-04 14:08] MED LIST changes: +DOCU250C14 MT; -DOCU250C14 PO; -FAMO20TA8 PO; +FURO20TA4 MT; +HALO2TAB MT; +LEVO75TA7 MT; -LEVO88TA7 PO; -OR220 PO; -POLY17PO3 PO; -SENN-3 PO; +SIMETHICONE 40 MG/0.6 ML 30ML ONE
[2018-12-04] MEDS ORDERED: ONDANSETRON HCL 4MG/2ML INJ IV STA (14:18)
[2018-12-04] MEDS ORDERED: SODIUM CHLORIDE 0.9% 1,000 ML IV ONE (14:18)
[2018-12-04 14:47] LABS: CHLORIDE 121 mEq/L (98-107)
[2018-12-04 14:49] LABS: BASOPHILS % 0.4 % (0.0-2.0); EOSINOPHILS % 0.8 % (0.0-5.0); HEMATOCRIT. 33.1 % (36.0-48.0); HEMOGLOBIN. 10.8 g/dL (12.0-16.0); MEAN CORPUSCULAR VOLUME 91.9 fL (81.0-99.0); MONOCYTES % 2.7 % (2.0-8.0); NEUTROPHILS % 88.1 % (40.0-76.0); PARTIAL THROMBOPLASTIN TIME 38.7 sec (23.4-31.0); PROTHROMBIN TIME 10.1 sec (9.6-11.0); RED BLOOD CELL COUNT 3.61 mill/uL (4.2-5.4); RED CELL DISTRIBUTION WIDTH 16.5 % (11.6-14.6)
[2018-12-04 14:51] LABS: ETHANOL BLOOD < 10 mg/dL
[2018-12-04 15:17] LABS: MEAN PLATELET VOLUME 9.8 fl (7.4-10.4)
[2018-12-04 15:18] LABS: PLATELET 36 x1000/uL (130-400)
[2018-12-04 15:19] LABS: PLATELET ESTIMATE MARKEDLY DECREASED
[2018-12-04 15:19] LABS: CLARITY URINE CLOUDY (CLEAR); COLOR URINE YELLOW (YELLOW); KETONES URINE TRACE (NEGATIVE); LEUKOCYTE ESTERASE URINE NEGATIVE (NEGATIVE); NITRITE URINE NEGATIVE (NEGATIVE); OCCULT BLOOD URINE NEGATIVE (NEGATIVE); PROTEIN URINE TRACE (NEGATIVE); SPECIFIC GRAVITY URINE 1.021 (1.005-1.030); UROBILINOGEN URINE 0.2 E.U./dL (0.2-1.0)
[2018-12-04 15:44] LABS: *AMPHETAMINES SCREEN URINE NEGATIVE (NEGATIVE)
[2018-12-04 15:45] LABS: *BARBITURATES SCREEN URINE NEGATIVE (NEGATIVE); *BENZODIAZEPINES SCREEN URINE NEGATIVE (NEGATIVE); *COCAINE SCREEN URINE NEGATIVE (NEGATIVE); METHADONE URINE SCREEN NEGATIVE (NEGATIVE)
[2018-12-04 15:46] LABS: CANNABINOID URINE SCREEN NEGATIVE (NEGATIVE); PHENCYCLIDINE URINE SCREEN NEGATIVE (NEGATIVE)
[2018-12-04 15:47] LABS: OPIATES URINE SCREEN NEGATIVE (NEGATIVE)
[2018-12-04] MEDS ORDERED: ETOMIDATE 2MG/ML 10ML VIAL IV ONE (17:03)
[2018-12-04] MEDS ORDERED: VECURONIUM BROMIDE 10 MG/VIAL IV ONE (17:03)
[2018-12-04] MEDS ORDERED: SUCCINYLCHOLINE CHLORIDE 200MG/10ML IV ONE (17:03)
[2018-12-04] MEDS ORDERED: LORAZEPAM 2MG/ML CPJ IV ONE (17:45)
[2018-12-04] MEDS ORDERED: PROPOFOL 10MG/ML 100ML 100 ML IV SCH (17:45)
[2018-12-04 17:49] LABS: BG BASE EXCESS -5.6 mmol/L (-2.0-2.0); BG CARBOXYHEMOGLOBIN 0.3 % (0.5-1.5); BG DEOXYHEMOGLOBIN 0.2 % (0.0-5.0); BG FRACTION INSPIRED OXYGEN 100; BG HCO3 ACT 19.2 mmol/L (22.0-26.0); BG METHEMOGLOBIN 0.3 % (0.0-1.5); BG OXYGEN SATURATION 99.8 % (92.0-98.5); BG OXYHEMOGLOBIN 99.2 % (94.0-97.0); BG PCO2 34.9 mmHg (35.0-45.0); BG PH 7.358 (7.350-7.450); BG PO2 > 602.7 mmHg (75.0-100.0); BG SAMPLE SITE RIGHT BRACHIAL; BG TIDAL VOLUME(mL) 500 mL; BG VENT MODE VENT - A/C; BG VENT RATE 12 set
[2018-12-04] MEDS ORDERED: LEVOFLOXACIN 750MG PREMIX 150 ML IV ONE (19:15)
[2018-12-04] MEDS ORDERED: BENZTROPINE MESYLATE 1MG TABLET PO NR (19:30)
[2018-12-04] MEDS ORDERED: SODIUM POLYSTYRENE SULFONATE 15 G/60 ML BOT NG NR (21:00)
[2018-12-04] MEDS ORDERED: SODIUM BICARBONATE 50 MEQ in DEXTROSE 5% WATER 950 ML IV SCH ×3 (22:00)
[2018-12-05] VITALS (42 sets, daily range): BP systolic 71–230; BP diastolic 28–124
[2018-12-05] MEDS ORDERED: SODIUM POLYSTYRENE SULFONATE 15 G/60 ML BOT NG NR
[2018-12-05 05:50] LABS: BASOPHILS % 0.4 % (0.0-2.0); EOSINOPHILS % 0.2 % (0.0-5.0); HEMATOCRIT. 31.3 % (36.0-48.0); HEMOGLOBIN. 10.2 g/dL (12.0-16.0); LYMPHOCYTES % 8.2 % (20.0-50.0); MEAN CORPUSCULAR HEMOGLOBIN 29.6 pg (28.0-32.0); MEAN CORPUSCULAR VOLUME 91.1 fL (81.0-99.0); MEAN PLATELET VOLUME 10.3 fl (7.4-10.4); MONOCYTES % 2.9 % (2.0-8.0); NEUTROPHILS % 88.3 % (40.0-76.0); RED BLOOD CELL COUNT 3.43 mill/uL (4.2-5.4); RED CELL DISTRIBUTION WIDTH 16.7 % (11.6-14.6)
[2018-12-05 05:58] LABS: CHLORIDE 121 mEq/L (98-107)
[2018-12-05 06:04] LABS: PHOSPHORUS 2.1 mg/dL (2.5-4.9)
[2018-12-05 06:29] LABS: VITAMIN B12 SERUM >2000 pg/mL pg/mL (211-911)
[2018-12-05 06:46] LABS: PLATELET 31 x1000/uL (130-400)
[2018-12-05 07:19] LABS: BG BASE EXCESS -2.8 mmol/L (-2.0-2.0); BG CARBOXYHEMOGLOBIN 0.3 % (0.5-1.5); BG METHEMOGLOBIN 0.3 % (0.0-1.5); BG OXYHEMOGLOBIN 98.4 % (94.0-97.0); BG PCO2 28.5 mmHg (35.0-45.0); BG PH 7.464 (7.350-7.450); BG PO2 153.6 mmHg (75.0-100.0); BG SAMPLE SITE RIGHT BRACHIAL; BG TIDAL VOLUME(mL) 500 mL; BG TOTAL HEMOGLOBIN 10.6 g/dL (12.0-18.0); BG VENT MODE VENT - A/C; BG VENT RATE 12 set
[2018-12-05] MEDS: DEXTROSE 5% WATER 1,000 ML IV SCH ×2 (08:30→18:30)
[2018-12-05] MEDS ORDERED: SODIUM POLYSTYRENE SULFONATE 15 G/60 ML BOT PO NR (08:30)
[2018-12-05] MEDS: LEVOTHYROXINE SODIUM 75MCG TABLET PO SCH (09:32)
[2018-12-05 09:59] LABS: T4 FREE 1.3 ng/dL (0.76-1.46)
[2018-12-05] MEDS ORDERED: SODIUM PHOS,M-BASIC-D-BASIC 20 MM in DEXT 5% WATER 243.3333 ML IV NR (10:00)
[2018-12-06] VITALS (63 sets, daily range): BP systolic 49–214; BP diastolic 29–160
[2018-12-06] MEDS: DEXTROSE 5% WATER 1,000 ML IV SCH ×2 (03:39→13:14)
[2018-12-06] MEDS: LEVOTHYROXINE SODIUM 75MCG TABLET PO SCH (05:58)
[2018-12-06 06:03] LABS: CHLORIDE 121 mEq/L (98-107)
[2018-12-06 06:11] LABS: PHOSPHORUS 2.1 mg/dL (2.5-4.9)
[2018-12-06 07:05] LABS: HEMATOCRIT. 30.9 % (36.0-48.0); HEMOGLOBIN. 10.3 g/dL (12.0-16.0); MEAN CORPUSCULAR HEMOGLOBIN 30.2 pg (28.0-32.0); MEAN CORPUSCULAR VOLUME 90.4 fL (81.0-99.0); MEAN PLATELET VOLUME 10.8 fl (7.4-10.4); RED BLOOD CELL COUNT 3.42 mill/uL (4.2-5.4); RED CELL DISTRIBUTION WIDTH 16.1 % (11.6-14.6)
[2018-12-06 08:06] LABS: PLATELET 47 x1000/uL (130-400)
[2018-12-06 08:26] LABS: BG BASE EXCESS -2.5 mmol/L (-2.0-2.0); BG CARBOXYHEMOGLOBIN 0.3 % (0.5-1.5); BG DEOXYHEMOGLOBIN 1.2 % (0.0-5.0); BG FRACTION INSPIRED OXYGEN 40; BG HCO3 ACT 20.8 mmol/L (22.0-26.0); BG METHEMOGLOBIN 0.3 % (0.0-1.5); BG OXYGEN SATURATION 98.8 % (92.0-98.5); BG OXYHEMOGLOBIN 98.2 % (94.0-97.0); BG PCO2 30.5 mmHg (35.0-45.0); BG PH 7.451 (7.350-7.450); BG PO2 166.5 mmHg (75.0-100.0); BG SAMPLE SITE RIGHT BRACHIAL; BG TIDAL VOLUME(mL) 500 mL; BG TOTAL HEMOGLOBIN 9.9 g/dL (12.0-18.0); BG VENT MODE VENT - A/C; BG VENT RATE 12 set
[2018-12-06 09:10] LABS: NUCLEATED RED BLOOD CELLS 1 /100 WBC; PLATELET ESTIMATE MARKEDLY DECREASED
[2018-12-06] MEDS ORDERED: SODIUM PHOS,M-BASIC-D-BASIC 20 MM in DEXT 5% WATER 243.3333 ML IV ONE (10:00)
[2018-12-06] MEDS ORDERED: MAGNESIUM 2 G PREMIX 50 ML IV NR (10:00)
[2018-12-06] MEDS ORDERED: SODIUM CHLORIDE 0.9% 1000ML BAG (SEPSIS BOLUS) IV ONE ×3 (13:30→19:45)
[2018-12-06] MEDS ORDERED: SODIUM CHLORIDE 0.9% 500 ML IV ONE (13:45)
[2018-12-06] MEDS ORDERED: SODIUM CHLORIDE 0.9% 1,000 ML IV NR (15:45)
[2018-12-06] MEDS ORDERED: NOREPINEPHRINE 4MG/250ML PMX 250 ML IV ONE (16:15)
[2018-12-06 16:36] LABS: BG BASE EXCESS -4.8 mmol/L (-2.0-2.0); BG CARBOXYHEMOGLOBIN 0.1 % (0.5-1.5); BG DEOXYHEMOGLOBIN 2.1 % (0.0-5.0); BG FRACTION INSPIRED OXYGEN 40; BG HCO3 ACT 19.6 mmol/L (22.0-26.0); BG METHEMOGLOBIN 0.6 % (0.0-1.5); BG OXYGEN SATURATION 97.9 % (92.0-98.5); BG OXYHEMOGLOBIN 97.2 % (94.0-97.0); BG PCO2 32.9 mmHg (35.0-45.0); BG PH 7.392 (7.350-7.450); BG PO2 124.9 mmHg (75.0-100.0); BG PRESSURE SUPPORT 8; BG SAMPLE SITE RIGHT RADIAL; BG TOTAL HEMOGLOBIN 8.1 g/dL (12.0-18.0); BG VENT MODE VENT - CPAP
[2018-12-06] MEDS: NOREPINEPHRINE 4 MG in DEXTROSE 5% WATER 250 ML IV PRN (16:52)
[2018-12-06] MEDS: MEROPENEM 1,000 MG in SODIUM CHLORIDE 0.9% 100 ML IV SCH (16:56)
[2018-12-06] MEDS: AZITHROMYCIN 500 MG in DEXT 5% WATER 250 ML IV SCH (17:33)
[2018-12-06] MEDS ORDERED: VANCOMYCIN 1 G PREMIX 200 ML IV SCH (18:00)
[2018-12-06] MEDS ORDERED: BARIUM SULFATE 450ML ORAL SUSP PO SCH (19:45)
[2018-12-07] VITALS (100 sets, daily range): BP systolic 44–205; BP diastolic 25–151
[2018-12-07] MEDS: DEXTROSE 5% WATER 1,000 ML IV SCH ×3 (03:31→15:08)
[2018-12-07] MEDS: MEROPENEM 1,000 MG in SODIUM CHLORIDE 0.9% 100 ML IV SCH ×2 (03:36→16:45)
[2018-12-07 05:33] LABS: CHLORIDE 115 mEq/L (98-107)
[2018-12-07 05:39] LABS: HEMATOCRIT. 29.8 % (36.0-48.0); MEAN CORPUSCULAR HEMOGLOBIN 29.9 pg (28.0-32.0); MEAN CORPUSCULAR VOLUME 89.5 fL (81.0-99.0); MEAN PLATELET VOLUME 10.4 fl (7.4-10.4); RED BLOOD CELL COUNT 3.33 mill/uL (4.2-5.4); RED CELL DISTRIBUTION WIDTH 15.6 % (11.6-14.6)
[2018-12-07 05:45] LABS: PHOSPHORUS 3.3 mg/dL (2.5-4.9)
[2018-12-07] MEDS: LEVOTHYROXINE SODIUM 75MCG TABLET PO SCH (06:11)
[2018-12-07 06:22] LABS: PLATELET 35 x1000/uL (130-400)
[2018-12-07 07:23] LABS: NUCLEATED RED BLOOD CELLS 9 /100 WBC
[2018-12-07 07:24] LABS: PLATELET ESTIMATE MARKEDLY DECREASED
[2018-12-07 08:18] LABS: IMMUNOGLOBULIN A 246 mg/dL (64-422); IMMUNOGLOBULIN G 934 mg/dL (700-1600); IMMUNOGLOBULIN M 92 mg/dL (26-217)
[2018-12-07] MEDS ORDERED: POTASSIUM CHLORIDE 20MEQ/PACKET PO SCH (08:30)
[2018-12-07 08:36] LABS: BG BASE EXCESS -4.7 mmol/L (-2.0-2.0); BG CARBOXYHEMOGLOBIN 0.3 % (0.5-1.5); BG DEOXYHEMOGLOBIN 1.5 % (0.0-5.0); BG FRACTION INSPIRED OXYGEN 40; BG METHEMOGLOBIN 0.2 % (0.0-1.5); BG OXYGEN SATURATION 98.5 % (92.0-98.5); BG PCO2 30.2 mmHg (35.0-45.0); BG PH 7.416 (7.350-7.450); BG PO2 148.1 mmHg (75.0-100.0); BG SAMPLE SITE LEFT RADIAL; BG TIDAL VOLUME(mL) 500 mL; BG TOTAL HEMOGLOBIN 10.4 g/dL (12.0-18.0); BG VENT MODE VENT - A/C; BG VENT RATE 12 set
[2018-12-07] MEDS ORDERED: MAGNESIUM 2 G PREMIX 50 ML IV SCH (09:00)
[2018-12-07] MEDS ORDERED: LIDOCAINE HCL 1% 20ML VIAL (Pyxis) INJ ONE (09:03)
[2018-12-07] MEDS: NOREPINEPHRINE 4 MG in DEXTROSE 5% WATER 250 ML IV PRN (09:26)
[2018-12-07] MEDS ORDERED: DIATR MEGLU/DIATRIZOATE SOLN 30ML PO SCH (09:30)
[2018-12-07] MEDS ORDERED: VANCOMYCIN 1 G PREMIX 200 ML IV NR (15:00)
[2018-12-07] MEDS: AZITHROMYCIN 500 MG in DEXT 5% WATER 250 ML IV SCH (15:08)
[2018-12-07 19:06] LABS: KAPPA LT CHAINS FREE SERUM 135.6 mg/L (3.3-19.4); KAPPA/LAMBDA RATIO 2.86 (0.26-1.65); LAMBDA LT CHAINS FREE SERUM 47.4 mg/L (5.7-26.3)
[2018-12-08] VITALS (99 sets, daily range): BP systolic 55–200; BP diastolic 27–127
[2018-12-08] MEDS: DEXTROSE 5% WATER 1,000 ML IV SCH (01:10)
[2018-12-08] MEDS: MEROPENEM 1,000 MG in SODIUM CHLORIDE 0.9% 100 ML IV SCH ×2 (03:46→15:10)
[2018-12-08 05:20] LABS: BASOPHILS % 0.1 % (0.0-2.0); EOSINOPHILS % 0.7 % (0.0-5.0); HEMATOCRIT. 29.1 % (36.0-48.0); HEMOGLOBIN. 9.6 g/dL (12.0-16.0); LYMPHOCYTES % 12.8 % (20.0-50.0); MEAN CORPUSCULAR HEMOGLOBIN 29.4 pg (28.0-32.0); MEAN PLATELET VOLUME 10.5 fl (7.4-10.4); MONOCYTES % 3.2 % (2.0-8.0); NEUTROPHILS % 83.2 % (40.0-76.0); RED BLOOD CELL COUNT 3.26 mill/uL (4.2-5.4); RED CELL DISTRIBUTION WIDTH 15.7 % (11.6-14.6)
[2018-12-08 05:27] LABS: CHLORIDE 113 mEq/L (98-107)
[2018-12-08 05:31] LABS: PLATELET 28 x1000/uL (130-400)
[2018-12-08 05:31] LABS: DRVVT MIX LA 45.5 sec (0.0-47.0); HEXAGONAL PHASE PHOSPHOLIPID 10 sec (0-11); LUPUS ANTICOAG INTERPRETATION Comment: (.); PTT-LA 60.6 sec (0.0-51.9); PTT-LA MIX 53.8 sec (0.0-48.9)
[2018-12-08] MEDS: LEVOTHYROXINE SODIUM 75MCG TABLET PO SCH (05:50)
[2018-12-08] MEDS ORDERED: KCL 20MEQ/100ML PREMIX 100 ML IV ONE (06:15)
[2018-12-08 07:13] LABS: PLATELET ESTIMATE MARKEDLY DECREASED
[2018-12-08] MEDS ORDERED: POTASSIUM CHLORIDE INJ 60 MEQ in DEXT 5% WATER 500 ML IV NR (07:30)
[2018-12-08] MEDS ORDERED: POTASSIUM CHLORIDE INJ 40 MEQ in DEXT 5% WATER 250 ML IV NR (07:30)
[2018-12-08 09:06] LABS: HIV SCREEN 4G Non Reactive (Non Reactive)
[2018-12-08 09:54] LABS: BG BASE EXCESS -3.6 mmol/L (-2.0-2.0); BG CARBOXYHEMOGLOBIN 0.3 % (0.5-1.5); BG CPAP (cmH2O) 0 cm(H2O); BG DEOXYHEMOGLOBIN 1.3 % (0.0-5.0); BG HCO3 ACT 20.2 mmol/L (22.0-26.0); BG METHEMOGLOBIN 0.3 % (0.0-1.5); BG OXYGEN SATURATION 98.7 % (92.0-98.5); BG OXYHEMOGLOBIN 98.1 % (94.0-97.0); BG PCO2 31.8 mmHg (35.0-45.0); BG PH 7.421 (7.350-7.450); BG PO2 164.2 mmHg (75.0-100.0); BG SAMPLE SITE RIGHT RADIAL; BG TOTAL HEMOGLOBIN 9.7 g/dL (12.0-18.0); BG VENT MODE VENT - CPAP
[2018-12-08] MEDS ORDERED: VANCOMYCIN 1250MG in DEXTROSE 5% WATER 250ML IV NR (10:00)
[2018-12-08] MEDS: MIDODRINE HCL 5MG TABLET PO SCH ×3 (10:42→17:07)
[2018-12-08] MEDS: DEXT 5% WATER + KCL 20MEQ/L 1,000 ML IV SCH (13:10)
[2018-12-08 15:10] LABS: ANTI-NUCLEAR ANTIBODIES DIRECT Positive (Negative)
[2018-12-08] MEDS: AZITHROMYCIN 500 MG in DEXT 5% WATER 250 ML IV SCH (15:10)
[2018-12-09] VITALS (94 sets, daily range): BP systolic 71–191; BP diastolic 24–142
[2018-12-09] MEDS: DEXT 5% WATER + KCL 20MEQ/L 1,000 ML IV SCH (03:00)
[2018-12-09] MEDS: NOREPINEPHRINE 4 MG in DEXTROSE 5% WATER 250 ML IV PRN (03:32)
[2018-12-09] MEDS: MEROPENEM 1,000 MG in SODIUM CHLORIDE 0.9% 100 ML IV SCH ×2 (04:00→17:24)
[2018-12-09 05:02] LABS: BASOPHILS % 0.3 % (0.0-2.0); EOSINOPHILS % 1.1 % (0.0-5.0); HEMATOCRIT. 23.5 % (36.0-48.0); HEMOGLOBIN. 7.8 g/dL (12.0-16.0); MEAN CORPUSCULAR HEMOGLOBIN 29.7 pg (28.0-32.0); MEAN CORPUSCULAR VOLUME 89.5 fL (81.0-99.0); MEAN PLATELET VOLUME 9.6 fl (7.4-10.4); MONOCYTES % 2.7 % (2.0-8.0); NEUTROPHILS % 84.9 % (40.0-76.0); RED BLOOD CELL COUNT 2.62 mill/uL (4.2-5.4); RED CELL DISTRIBUTION WIDTH 15.8 % (11.6-14.6)
[2018-12-09 05:07] LABS: PHOSPHORUS 3.4 mg/dL (2.5-4.9)
[2018-12-09 05:42] LABS: PLATELET 17 x1000/uL (130-400)
[2018-12-09] MEDS: LEVOTHYROXINE SODIUM 75MCG TABLET PO SCH (06:31)
[2018-12-09] MEDS: MIDODRINE HCL 5MG TABLET PO SCH ×3 (09:49→17:29)
[2018-12-09] MEDS ORDERED: FUROSEMIDE 40MG/4ML VIAL IVP NR (10:00)
[2018-12-09 10:13] LABS: BG BASE EXCESS -3.7 mmol/L (-2.0-2.0); BG CARBOXYHEMOGLOBIN 0.2 % (0.5-1.5); BG DEOXYHEMOGLOBIN 2.3 % (0.0-5.0); BG FRACTION INSPIRED OXYGEN 32; BG METHEMOGLOBIN 1.8 % (0.0-1.5); BG OXYGEN SATURATION 97.7 % (92.0-98.5); BG OXYHEMOGLOBIN 95.7 % (94.0-97.0); BG PCO2 36.6 mmHg (35.0-45.0); BG PH 7.377 (7.350-7.450); BG PO2 138.9 mmHg (75.0-100.0); BG SAMPLE SITE LEFT BRACHIAL; BG TOTAL HEMOGLOBIN 9.2 g/dL (12.0-18.0); BG VENT MODE NASAL CANNULA
[2018-12-09] MEDS: IPRATROPIUM/ALBUTEROL 0.5-3(2.5)MG/3ML NEB HHN SCH ×3 (10:50→20:35)
[2018-12-09] MEDS: METHYLPREDNISOLONE SOD SUCC 40 MG/ML VIAL IV SCH ×2 (14:10→21:27)
[2018-12-09] MEDS: AZITHROMYCIN 500 MG in DEXT 5% WATER 250 ML IV SCH (15:35)
[2018-12-10] VITALS (66 sets, daily range): BP systolic 69–160; BP diastolic 32–129
[2018-12-10] MEDS: IPRATROPIUM/ALBUTEROL 0.5-3(2.5)MG/3ML NEB HHN SCH ×6 (00:48→21:27)
[2018-12-10 04:42] LABS: HEMOGLOBIN. 9.7 g/dL (12.0-16.0); MEAN CORPUSCULAR HEMOGLOBIN 29.4 pg (28.0-32.0); MEAN CORPUSCULAR VOLUME 87.8 fL (81.0-99.0); RED CELL DISTRIBUTION WIDTH 15.3 % (11.6-14.6)
[2018-12-10 04:58] LABS: PHOSPHORUS 3.5 mg/dL (2.5-4.9)
[2018-12-10 05:05] LABS: PLATELET 36 x1000/uL (130-400)
[2018-12-10] MEDS: MEROPENEM 1,000 MG in SODIUM CHLORIDE 0.9% 100 ML IV SCH (05:16)
[2018-12-10] MEDS: METHYLPREDNISOLONE SOD SUCC 40 MG/ML VIAL IV SCH ×3 (06:18→21:19)
[2018-12-10] MEDS: LEVOTHYROXINE SODIUM 75MCG TABLET PO SCH (06:18)
[2018-12-10 08:08] LABS: BG BASE EXCESS -4.1 mmol/L (-2.0-2.0); BG CARBOXYHEMOGLOBIN 0.3 % (0.5-1.5); BG DEOXYHEMOGLOBIN 4.3 % (0.0-5.0); BG FRACTION INSPIRED OXYGEN 32; BG HCO3 ACT 20.6 mmol/L (22.0-26.0); BG METHEMOGLOBIN 1.3 % (0.0-1.5); BG OXYGEN SATURATION 95.6 % (92.0-98.5); BG OXYHEMOGLOBIN 94.1 % (94.0-97.0); BG PCO2 36.2 mmHg (35.0-45.0); BG PH 7.374 (7.350-7.450); BG PO2 83.8 mmHg (75.0-100.0); BG SAMPLE SITE LEFT RADIAL; BG TOTAL HEMOGLOBIN 10.3 g/dL (12.0-18.0); BG VENT MODE NASAL CANNULA
[2018-12-10] MEDS: MIDODRINE HCL 5MG TABLET PO SCH ×3 (10:15→18:48)
[2018-12-10] MEDS: DEXTROSE 5% WATER 1,000 ML IV SCH (10:15)
[2018-12-10] MEDS: METRONIDAZOLE 500MG TABLET PO SCH ×2 (13:30→21:19)
[2018-12-10] MEDS: CEFTAZIDIME PENTAHYDRATE 1 G in DEXTROSE 5% WATER 50 ML IV SCH (13:30)
[2018-12-10 14:07] LABS: PLATELET ESTIMATE MARKEDLY DECREASED
[2018-12-11] MEDS: IPRATROPIUM/ALBUTEROL 0.5-3(2.5)MG/3ML NEB HHN SCH ×6 (00:44→21:26)
[2018-12-11] MEDS: CEFTAZIDIME PENTAHYDRATE 1 G in DEXTROSE 5% WATER 50 ML IV SCH ×2 (02:23→13:13)
[2018-12-11 06:24] LABS: HEMATOCRIT. 27.6 % (36.0-48.0); HEMOGLOBIN. 9.1 g/dL (12.0-16.0); MEAN CORPUSCULAR VOLUME 88.3 fL (81.0-99.0); MEAN PLATELET VOLUME 8.4 fl (7.4-10.4); RED BLOOD CELL COUNT 3.12 mill/uL (4.2-5.4); RED CELL DISTRIBUTION WIDTH 15.4 % (11.6-14.6)
[2018-12-11] MEDS: LEVOTHYROXINE SODIUM 75MCG TABLET PO SCH (06:40)
[2018-12-11] MEDS: METHYLPREDNISOLONE SOD SUCC 40 MG/ML VIAL IV SCH ×2 (06:40→13:13)
[2018-12-11] MEDS: DEXTROSE 5% WATER 1,000 ML IV SCH (06:41)
[2018-12-11 06:51] LABS: CHLORIDE 111 mEq/L (98-107)
[2018-12-11 07:06] LABS: PLATELET 41 x1000/uL (130-400)
[2018-12-11] MEDS: METRONIDAZOLE 500MG TABLET PO SCH ×2 (08:23→22:00)
[2018-12-11] MEDS: MIDODRINE HCL 5MG TABLET PO SCH ×3 (08:23→17:07)
[2018-12-11 13:31] LABS: PLATELET ESTIMATE MARKEDLY DECREASED
[2018-12-11] MEDS: PREDNISONE 20MG TABLET PO SCH (18:31)
[2018-12-11 20:00] VITALS: BP 139/82
[2018-12-11 22:00] VITALS: BP 136/77
[2018-12-12] VITALS (15 sets, daily range): BP systolic 91–156; BP diastolic 41–92
[2018-12-12] MEDS: IPRATROPIUM/ALBUTEROL 0.5-3(2.5)MG/3ML NEB HHN SCH ×6 (00:19→19:59)
[2018-12-12] MEDS: DEXTROSE 5% WATER 1,000 ML IV SCH ×2 (00:50→20:25)
[2018-12-12] MEDS: CEFTAZIDIME PENTAHYDRATE 1 G in DEXTROSE 5% WATER 50 ML IV SCH ×2 (02:31→13:54)
[2018-12-12] MEDS: LEVOTHYROXINE SODIUM 75MCG TABLET PO SCH (06:26)
[2018-12-12] MEDS: MIDODRINE HCL 5MG TABLET PO SCH ×3 (08:55→16:54)
[2018-12-12] MEDS: PREDNISONE 20MG TABLET PO SCH (08:55)
[2018-12-12] MEDS: METRONIDAZOLE 500MG TABLET PO SCH ×2 (08:55→20:22)
[2018-12-12 10:01] LABS: HEMATOCRIT. 29.5 % (36.0-48.0); HEMOGLOBIN. 9.7 g/dL (12.0-16.0); MEAN CORPUSCULAR HEMOGLOBIN 29.3 pg (28.0-32.0); MEAN PLATELET VOLUME 9.4 fl (7.4-10.4); RED BLOOD CELL COUNT 3.32 mill/uL (4.2-5.4); RED CELL DISTRIBUTION WIDTH 15.6 % (11.6-14.6)
[2018-12-12 10:11] LABS: PLATELET 43 x1000/uL (130-400)
[2018-12-12 10:18] LABS: CHLORIDE 109 mEq/L (98-107)
[2018-12-12 10:25] LABS: PHOSPHORUS 3.9 mg/dL (2.5-4.9)
[2018-12-12 11:24] LABS: PLATELET ESTIMATE MARKEDLY DECREASED
[2018-12-13] VITALS (20 sets, daily range): BP systolic 83–130; BP diastolic 43–75
[2018-12-13] MEDS: IPRATROPIUM/ALBUTEROL 0.5-3(2.5)MG/3ML NEB HHN SCH ×6 (01:18→20:24)
[2018-12-13] MEDS: CEFTAZIDIME PENTAHYDRATE 1 G in DEXTROSE 5% WATER 50 ML IV SCH ×2 (02:00→13:14)
[2018-12-13 06:24] LABS: HEMATOCRIT. 26.7 % (36.0-48.0); MEAN CORPUSCULAR HEMOGLOBIN 29.9 pg (28.0-32.0); MEAN CORPUSCULAR VOLUME 88.8 fL (81.0-99.0); MEAN PLATELET VOLUME 9.6 fl (7.4-10.4); PLATELET 64 x1000/uL (130-400); RED BLOOD CELL COUNT 3.01 mill/uL (4.2-5.4); RED CELL DISTRIBUTION WIDTH 15.3 % (11.6-14.6)
[2018-12-13 06:52] LABS: PROTHROMBIN TIME 10.1 sec (9.6-11.0)
[2018-12-13 07:03] LABS: PHOSPHORUS 3.8 mg/dL (2.5-4.9)
[2018-12-13] MEDS: LEVOTHYROXINE SODIUM 75MCG TABLET PO SCH (07:18)
[2018-12-13] MEDS: METRONIDAZOLE 500MG TABLET PO SCH ×2 (08:48→21:22)
[2018-12-13] MEDS: PREDNISONE 20MG TABLET PO SCH (08:50)
[2018-12-13] MEDS: MIDODRINE HCL 5MG TABLET PO SCH ×3 (08:50→17:00)
[2018-12-13 10:34] LABS: BG BASE EXCESS 1.2 mmol/L (-2.0-2.0); BG CARBOXYHEMOGLOBIN 0.3 % (0.5-1.5); BG DEOXYHEMOGLOBIN 2.3 % (0.0-5.0); BG FRACTION INSPIRED OXYGEN 32; BG HCO3 ACT 25.3 mmol/L (22.0-26.0); BG METHEMOGLOBIN 0.6 % (0.0-1.5); BG OXYGEN SATURATION 97.7 % (92.0-98.5); BG OXYHEMOGLOBIN 96.8 % (94.0-97.0); BG PCO2 37.7 mmHg (35.0-45.0); BG PH 7.444 (7.350-7.450); BG PO2 109.7 mmHg (75.0-100.0); BG SAMPLE SITE LEFT RADIAL; BG TOTAL HEMOGLOBIN 9.9 g/dL (12.0-18.0); BG VENT MODE NASAL CPAP
[2018-12-13 10:59] LABS: PLATELET ESTIMATE DECREASED
[2018-12-13] MEDS: PANTOPRAZOLE SODIUM 40 MG/VIAL IV SCH (11:51)
[2018-12-13] MEDS ORDERED: SODIUM POLYSTYRENE SULFONATE 15 G/60 ML BOT NG SCH (15:00)
[2018-12-13] MEDS: DEXTROSE 5% WATER 1,000 ML IV SCH (16:45)
[2018-12-14] VITALS (12 sets, daily range): BP systolic 98–135; BP diastolic 29–118
[2018-12-14] MEDS: IPRATROPIUM/ALBUTEROL 0.5-3(2.5)MG/3ML NEB HHN SCH ×6 (00:38→20:34)
[2018-12-14] MEDS: CEFTAZIDIME PENTAHYDRATE 1 G in DEXTROSE 5% WATER 50 ML IV SCH ×2 (02:25→14:00)
[2018-12-14] MEDS ORDERED: SODIUM POLYSTYRENE SULFONATE 15 G/60 ML BOT PO NR (04:00)
[2018-12-14 06:41] LABS: PARTIAL THROMBOPLASTIN TIME 26.4 sec (23.4-31.0); PROTHROMBIN TIME 10.5 sec (9.6-11.0)
[2018-12-14 06:46] LABS: BASOPHILS % 0.1 % (0.0-2.0); EOSINOPHILS % 0.3 % (0.0-5.0); HEMATOCRIT. 29.2 % (36.0-48.0); HEMOGLOBIN. 9.6 g/dL (12.0-16.0); LYMPHOCYTES % 7.9 % (20.0-50.0); MEAN CORPUSCULAR HEMOGLOBIN 29.5 pg (28.0-32.0); MEAN CORPUSCULAR VOLUME 89.3 fL (81.0-99.0); MEAN PLATELET VOLUME 9.4 fl (7.4-10.4); MONOCYTES % 4.9 % (2.0-8.0); NEUTROPHILS % 86.8 % (40.0-76.0); PLATELET 92 x1000/uL (130-400); RED BLOOD CELL COUNT 3.27 mill/uL (4.2-5.4); RED CELL DISTRIBUTION WIDTH 15.3 % (11.6-14.6)
[2018-12-14] MEDS: LEVOTHYROXINE SODIUM 75MCG TABLET PO SCH (06:50)
[2018-12-14 07:34] LABS: PHOSPHORUS 4.5 mg/dL (2.5-4.9)
[2018-12-14] MEDS: PANTOPRAZOLE SODIUM 40 MG/VIAL IV SCH (08:31)
[2018-12-14] MEDS: MIDODRINE HCL 5MG TABLET PO SCH ×3 (09:00→17:13)
[2018-12-14] MEDS: METRONIDAZOLE 500MG TABLET PO SCH ×2 (09:00→21:52)
[2018-12-14] MEDS: PREDNISONE 20MG TABLET PO SCH (09:00)
[2018-12-14] MEDS ORDERED: SIMETHICONE 40 MG/0.6 ML 30ML ONE (12:00)
[2018-12-14] MEDS: DEXTROSE 5% WATER 1,000 ML IV SCH (12:45)
[2018-12-14] MEDS ORDERED: FENTANYL CITRATE/PF 50MCG/ML 2ML VIAL ONE (14:23)
[2018-12-14] MEDS ORDERED: MIDAZOLAM HCL 5 MG/5 ML VIAL ONE (14:23)
[2018-12-14] MEDS ORDERED: MIDAZOLAM HCL 5 MG/5 ML VIAL IV PRN (14:27)
[2018-12-15] VITALS (14 sets, daily range): BP systolic 106–173; BP diastolic 48–88
[2018-12-15] MEDS: IPRATROPIUM/ALBUTEROL 0.5-3(2.5)MG/3ML NEB HHN SCH ×6 (00:35→20:29)
[2018-12-15] MEDS: CEFTAZIDIME PENTAHYDRATE 1 G in DEXTROSE 5% WATER 50 ML IV SCH ×2 (02:21→13:30)
[2018-12-15] MEDS: LEVOTHYROXINE SODIUM 75MCG TABLET PO SCH (06:15)
[2018-12-15 07:18] LABS: BASOPHILS % 0.2 % (0.0-2.0); EOSINOPHILS % 1.8 % (0.0-5.0); HEMATOCRIT. 25.7 % (36.0-48.0); HEMOGLOBIN. 8.5 g/dL (12.0-16.0); LYMPHOCYTES % 9.3 % (20.0-50.0); MEAN CORPUSCULAR HEMOGLOBIN 29.5 pg (28.0-32.0); MEAN CORPUSCULAR VOLUME 89.3 fL (81.0-99.0); MEAN PLATELET VOLUME 9.6 fl (7.4-10.4); MONOCYTES % 3.9 % (2.0-8.0); NEUTROPHILS % 84.8 % (40.0-76.0); PLATELET 99 x1000/uL (130-400); RED BLOOD CELL COUNT 2.88 mill/uL (4.2-5.4)
[2018-12-15 07:57] LABS: PHOSPHORUS 3.7 mg/dL (2.5-4.9)
[2018-12-15] MEDS: DEXTROSE 5% WATER 1,000 ML IV SCH ×2 (08:45→20:48)
[2018-12-15] MEDS: PREDNISONE 20MG TABLET PO SCH (09:32)
[2018-12-15] MEDS: MIDODRINE HCL 5MG TABLET PO SCH ×3 (09:32→17:00)
[2018-12-15] MEDS: METRONIDAZOLE 500MG TABLET PO SCH ×2 (09:32→20:47)
[2018-12-16] VITALS (12 sets, daily range): BP systolic 105–166; BP diastolic 51–77
[2018-12-16] MEDS: IPRATROPIUM/ALBUTEROL 0.5-3(2.5)MG/3ML NEB HHN SCH ×6 (00:17→21:00)
[2018-12-16] MEDS: CEFTAZIDIME PENTAHYDRATE 1 G in DEXTROSE 5% WATER 50 ML IV SCH ×2 (01:18→14:00)
[2018-12-16] MEDS: DEXTROSE 5% WATER 1,000 ML IV SCH ×2 (04:45→16:51)
[2018-12-16] MEDS: LEVOTHYROXINE SODIUM 75MCG TABLET PO SCH (05:51)
[2018-12-16 07:00] LABS: HEMATOCRIT 25.8 % (36.0-48.0); HEMOGLOBIN 8.6 g/dL (12.0-16.0); MEAN CORPUSCULAR VOLUME 89.9 fL (81.0-99.0); PLATELET 158 x1000/uL (130-400); RED BLOOD CELL COUNT 2.87 mill/uL (4.2-5.4); RED CELL DISTRIBUTION WIDTH 14.8 % (11.6-14.6)
[2018-12-16] MEDS: PREDNISONE 20MG TABLET PO SCH (09:10)
[2018-12-16] MEDS: METRONIDAZOLE 500MG TABLET PO SCH ×2 (09:10→20:23)
[2018-12-16] MEDS: MIDODRINE HCL 5MG TABLET PO SCH ×3 (09:13→16:52)
[2018-12-17] VITALS: BP 125/70
[2018-12-17] MEDS: IPRATROPIUM/ALBUTEROL 0.5-3(2.5)MG/3ML NEB HHN SCH ×6 (00:58→21:27)
[2018-12-17] MEDS: CEFTAZIDIME PENTAHYDRATE 1 G in DEXTROSE 5% WATER 50 ML IV SCH ×2 (01:37→12:29)
[2018-12-17 04:00] VITALS: BP 127/51
[2018-12-17] MEDS: LEVOTHYROXINE SODIUM 75MCG TABLET PO SCH (06:20)
[2018-12-17 08:00] VITALS: BP 134/73
[2018-12-17] MEDS: METRONIDAZOLE 500MG TABLET PO SCH (08:47)
[2018-12-17] MEDS: PREDNISONE 20MG TABLET PO SCH (08:47)
[2018-12-17] MEDS: MIDODRINE HCL 5MG TABLET PO SCH ×3 (08:47→16:01)
[2018-12-17 16:00] VITALS: BP 133/106
[2018-12-17 20:00] VITALS: BP 168/66
[2018-12-18] VITALS (7 sets, daily range): BP systolic 108–158; BP diastolic 49–82
[2018-12-18] MEDS: IPRATROPIUM/ALBUTEROL 0.5-3(2.5)MG/3ML NEB HHN SCH ×6 (01:34→20:34)
[2018-12-18] MEDS: DEXTROSE 5% WATER 1,000 ML IV SCH ×2 (06:34→16:34)
[2018-12-18] MEDS: LEVOTHYROXINE SODIUM 75MCG TABLET PO SCH (06:34)
[2018-12-18 07:29] LABS: HEMOGLOBIN 8.9 g/dL (12.0-16.0); MEAN CORPUSCULAR HEMOGLOBIN 29.7 pg (28.0-32.0); MEAN CORPUSCULAR VOLUME 89.7 fL (81.0-99.0); PLATELET 203 x1000/uL (130-400)
[2018-12-18] MEDS: PREDNISONE 20MG TABLET PO SCH (08:55)
[2018-12-18] MEDS: MIDODRINE HCL 5MG TABLET PO SCH ×3 (08:56→16:33)
[2018-12-19] VITALS: BP 128/58
[2018-12-19] MEDS: IPRATROPIUM/ALBUTEROL 0.5-3(2.5)MG/3ML NEB HHN SCH ×6 (02:18→21:09)
[2018-12-19 04:00] VITALS: BP 117/56
[2018-12-19] MEDS: LEVOTHYROXINE SODIUM 75MCG TABLET PO SCH (06:32)
[2018-12-19] MEDS: DEXTROSE 5% WATER 1,000 ML IV SCH (06:35)
[2018-12-19 08:00] VITALS: BP 133/70
[2018-12-19] MEDS: PREDNISONE 20MG TABLET PO SCH (09:17)
[2018-12-19] MEDS: MIDODRINE HCL 5MG TABLET PO SCH ×3 (09:17→18:35)
[2018-12-19 12:00] VITALS: BP 106/82
[2018-12-19 16:00] VITALS: BP 101/53
[2018-12-19 20:00] VITALS: BP 130/84
[2018-12-19 21:28] LABS: CLARITY URINE CLEAR (CLEAR); COLOR URINE YELLOW (YELLOW); KETONES URINE NEGATIVE (NEGATIVE); LEUKOCYTE ESTERASE URINE NEGATIVE (NEGATIVE); NITRITE URINE NEGATIVE (NEGATIVE); OCCULT BLOOD URINE NEGATIVE (NEGATIVE); PH URINE 6.5 (4.5-8.0); PROTEIN URINE NEGATIVE (NEGATIVE); UROBILINOGEN URINE 0.2 E.U./dL (0.2-1.0)
[2018-12-20] VITALS: BP 148/81
[2018-12-20] MEDS: IPRATROPIUM/ALBUTEROL 0.5-3(2.5)MG/3ML NEB HHN SCH ×6 (00:07→21:21)
[2018-12-20 04:00] VITALS: BP 142/78
[2018-12-20] MEDS: DEXTROSE 5% WATER 1,000 ML IV SCH (06:13)
[2018-12-20] MEDS: LEVOTHYROXINE SODIUM 75MCG TABLET PO SCH (06:14)
[2018-12-20 07:14] LABS: BASOPHILS % 0.2 % (0.0-2.0); HEMATOCRIT. 27.9 % (36.0-48.0); HEMOGLOBIN. 9.4 g/dL (12.0-16.0); LYMPHOCYTES % 13.8 % (20.0-50.0); MEAN CORPUSCULAR HEMOGLOBIN 30.3 pg (28.0-32.0); MEAN CORPUSCULAR VOLUME 90.4 fL (81.0-99.0); MEAN PLATELET VOLUME 9.5 fl (7.4-10.4); PLATELET 179 x1000/uL (130-400); RED BLOOD CELL COUNT 3.09 mill/uL (4.2-5.4); RED CELL DISTRIBUTION WIDTH 14.8 % (11.6-14.6)
[2018-12-20 08:00] VITALS: BP 122/96
[2018-12-20] MEDS: PREDNISONE 20MG TABLET PO SCH (10:18)
[2018-12-20] MEDS: MIDODRINE HCL 5MG TABLET PO SCH ×3 (10:18→17:52)
[2018-12-20 12:00] VITALS: BP 143/69
[2018-12-20 16:00] VITALS: BP 137/78
[2018-12-20 20:00] VITALS: BP 101/54
[2018-12-21] VITALS: BP 117/78
[2018-12-21] MEDS: IPRATROPIUM/ALBUTEROL 0.5-3(2.5)MG/3ML NEB HHN SCH ×6 (01:02→20:54)
[2018-12-21] MEDS: DEXTROSE 5% WATER 1,000 ML IV SCH (05:01)
[2018-12-21 06:00] VITALS: BP 124/66
[2018-12-21] MEDS: LEVOTHYROXINE SODIUM 75MCG TABLET PO SCH (07:04)
[2018-12-21 08:00] VITALS: BP 108/44
[2018-12-21] MEDS: MIDODRINE HCL 5MG TABLET PO SCH ×3 (09:38→17:43)
[2018-12-21] MEDS: PREDNISONE 20MG TABLET PO SCH (09:38)
[2018-12-21 16:09] VITALS: BP 111/54
[2018-12-21 20:00] VITALS: BP 134/59
[2018-12-22] VITALS: BP 134/47
[2018-12-22] MEDS: IPRATROPIUM/ALBUTEROL 0.5-3(2.5)MG/3ML NEB HHN SCH ×3 (00:44→08:00)
[2018-12-22 04:00] VITALS: BP 123/48
[2018-12-22 08:00] VITALS: BP 115/59
[2018-12-22] MEDS: MIDODRINE HCL 5MG TABLET PO SCH ×2 (08:08→12:05)
[2018-12-22] MEDS: LEVOTHYROXINE SODIUM 75MCG TABLET PO SCH (08:08)
[2018-12-22] MEDS: PREDNISONE 20MG TABLET PO SCH (08:08)
[2018-12-22 12:00] VITALS: BP 123/48
[2018-12-22 15:22] VITALS: BP 123/48
[2018-12-22 16:00] VITALS: BP 130/68
== END 2018-12-22 17:00 | disposition home or self-care (01) | DRG 871 ==
LOC: ER 14:08 → MICUSO 17:41 → EDBEDREQ 17:43 → EDBEDREQSVC 17:43 → ENRESERV 19:57 → 3WST 12-10 17:42 → 6EST 12-17 01:13
PROVIDERS: ADMIT Ophthalmology; ATTEND Ophthalmology
PROC: 5A1945Z Respiratory Ventilation, 24-96 Consecutive Hours (ICD-10-PCS; principal; 2018-12-04)
PROC: 4A00X4Z Measurement of Central Nervous Electrical Activity, External Approach (ICD-10-PCS; 2018-12-07)
PROC: 02HV33Z Insertion of Infusion Device into Superior Vena Cava, Percutaneous Approach (ICD-10-PCS; 2018-12-07)
PROC: B548ZZA Ultrasonography of Superior Vena Cava, Guidance (ICD-10-PCS; 2018-12-07)
PROC: 30233R1 Transfusion of Nonautologous Platelets into Peripheral Vein, Percutaneous Approach (ICD-10-PCS; 2018-12-09)
PROC: 30233N1 Transfusion of Nonautologous Red Blood Cells into Peripheral Vein, Percutaneous Approach (ICD-10-PCS; 2018-12-09)
PROC: 0DH63UZ Insertion of Feeding Device into Stomach, Percutaneous Approach (ICD-10-PCS; 2018-12-14)
PROC: 0BH17EZ Insertion of Endotracheal Airway into Trachea, Via Natural or Artificial Opening (ICD-10-PCS; 2018-12-14)
DX: A41.9 Sepsis, unspecified organism (principal); J96.02 Acute respiratory failure with hypercapnia; G92 Toxic encephalopathy; E43 Unspecified severe protein-calorie malnutrition; I50.43 Acute on chronic combined systolic (congestive) and diastolic (congestive) heart failure; J96.01 Acute respiratory failure with hypoxia; R65.21 Severe sepsis with septic shock; J69.0 Pneumonitis due to inhalation of food and vomit; N39.0 Urinary tract infection, site not specified; E87.0 Hyperosmolality and hypernatremia; D61.818 Other pancytopenia; I13.0 Hypertensive heart and chronic kidney disease with heart failure and stage 1 through stage 4 chronic kidney disease, or unspecified chronic kidney disease; I42.9 Cardiomyopathy, unspecified; I69.354 Hemiplegia and hemiparesis following cerebral infarction affecting left non-dominant side; N17.9 Acute kidney failure, unspecified; R74.0 Nonspecific elevation of levels of transaminase and lactic acid dehydrogenase [LDH]; N18.3 Chronic kidney disease, stage 3 (moderate); E87.5 Hyperkalemia; B95.2 Enterococcus as the cause of diseases classified elsewhere; D69.59 Other secondary thrombocytopenia; E03.9 Hypothyroidism, unspecified; E83.39 Other disorders of phosphorus metabolism; E87.6 Hypokalemia; F03.90 Unspecified dementia, unspecified severity, without behavioral disturbance, psychotic disturbance, mood disturbance, and anxiety; F20.9 Schizophrenia, unspecified; F31.9 Bipolar disorder, unspecified; G25.3 Myoclonus; I27.20 Pulmonary hypertension, unspecified; I34.0 Nonrheumatic mitral (valve) insufficiency; I44.0 Atrioventricular block, first degree; K29.40 Chronic atrophic gastritis without bleeding; K75.9 Inflammatory liver disease, unspecified; K80.20 Calculus of gallbladder without cholecystitis without obstruction; R00.1 Bradycardia, unspecified; R13.12 Dysphagia, oropharyngeal phase; T38.0X5A Adverse effect of glucocorticoids and synthetic analogues, initial encounter; Z82.49 Family history of ischemic heart disease and other diseases of the circulatory system; Z86.19 Personal history of other infectious and parasitic diseases; Z86.61 Personal history of infections of the central nervous system; Z87.440 Personal history of urinary (tract) infections; Z87.891 Personal history of nicotine dependence; Z88.6 Allergy status to analgesic agent; Z68.34 Body mass index [BMI] 34.0-34.9, adult; Y92.89 Other specified places as the place of occurrence of the external cause
CPT/HCPCS: 36415; 36569; 36600; 70551; 71045; 71250; 74018; 74176; 76700; 76937; 80048; 80076; 80202; 80305; 80320; 82140; 82270; 82330; 82375; 82550; 82570; 82607; 82746; 82784; 82805; 82962; 83036; 83605; 83735; 83880; 83883; 84100; 84132; 84300; 84439; 84443; 84478; 84481; 84484; 85027; 85384; 85613; 85732; 86038; 86334; 86803; 86850; 86900; 86920; 86945; 87070; 87077; 87116; 87186; 87340; 87389; 87449; 87804; 92610; 93005; 93306; 93970; 94002; 94640; 96374; 96375; 97110; 97163; 97164; 97530; 99291; A6261; C1725; C9113; J0330; J0456; J0713; J1940; J1956; J2060; J2185; J2250; J2405; J2704; J2920; J3010; J3370; J3475; J3480; J3490; J7030; J7040; J7042; J7050; J7060; J7070; J7512; J7620; P9016; P9034; Q9963; A4315; G0480